=== PATIENT | female | born 1940 | race Caucasian/White ===

== ENCOUNTER 2016-03-28 09:34 | Inpatient (IN) | payer OTHER ==
[2016-03-12 10:17] VITALS: BMI 32.0
--- NOTE | 2016-03-12 10:49 | PAT Medication Instructions ---
Service Date Mar 12, 2016. Current Home Medication List Allopurinol (Zyloprim), 200 MG PO QAM Alprazolam (Xanax), 0.5 MG PO BID PRN for Anxiety Atenolol (Tenormin), 25 MG PO QAM Biotin (Biotin 5000), 1 TAB PO QAM Cholecalciferol (Vitamin D), 1 TAB PO QAM Cyclobenzaprine Hcl (Flexeril), 10 MG PO TID PRN for Muscle Spasms Glucosamine-Chondroitin (Glucosamine/Chondroitin), 2 CAPSULES PO QAM Hydrocodon/Acetaminophen 5MG/300MG (Vicodin (5MG/300MG)), 1 TAB PO Q6H PRN for Pain Lisinopril/Hctz (Zestoretic 10MG/12.5MG *), 1 TAB PO QAM Multivitamin (Multivitamin), 1 TAB PO QAM Oxybutynin Chloride (Ditropan), 5 MG PO QAM Vitamin B Complex (Vitamin B Complex), 1 TAB PO QAM [Vitamin B12 Inj], 1 DOSE INJ MONTHLY Medication Instructions For Your Scheduled Surgery - Continue as directed: [Vitamin B12 Inj], 1 DOSE INJ MONTHLY - Hold the following medications 2 weeks prior to surgery: Biotin (Biotin 5000), 1 TAB PO QAM Glucosamine-Chondroitin (Glucosamine/Chondroitin), 2 CAPSULES PO QAM - Hold the following medications the morning of surgery: Cholecalciferol (Vitamin D), 1 TAB PO QAM Lisinopril/Hctz (Zestoretic 10MG/12.5MG *), 1 TAB PO QAM Multivitamin (Multivitamin), 1 TAB PO QAM Cyclobenzaprine Hcl (Flexeril), 10 MG PO TID PRN for Muscle Spasms Vitamin B Complex (Vitamin B Complex), 1 TAB PO QAM - Take the following medications the morning of surgery with a sip of water OTHERWISE NOTHING TO EAT OR DRINK AFTER MIDNIGHT: Allopurinol (Zyloprim), 200 MG PO QAM Alprazolam (Xanax), 0.5 MG PO BID PRN for Anxiety Atenolol (Tenormin), 25 MG PO QAM Oxybutynin Chloride (Ditropan), 5 MG PO QAM Hydrocodon/Acetaminophen 5MG/300MG (Vicodin (5MG/300MG)), 1 TAB PO Q6H PRN for Pain (may take if needed up to 4 hours prior to surgery) - Take the following medications as scheduled the night before surgery: Alprazolam (Xanax), 0.5 MG PO BID PRN for Anxiety Cyclobenzaprine Hcl (Flexeril), 10 MG PO TID PRN for Muscle Spasms Hydrocodon/Acetaminophen 5MG/300MG (Vicodin (5MG/300MG)), 1 TAB PO Q6H PRN for Pain If you have any questions please call us at [phone] (Shirley Knapp PA-C ) or [phone] or [phone]
--- NOTE | 2016-03-12 11:51 | DIAGNOSTIC IMAGING REPORT ---
CHEST PREADMISSION(PA/LAT) CLINICAL HISTORY: Preoperative chest. Trauma. Right mid chest and back pain. COMPARISON STUDY: No previous studies for comparison. FINDINGS: The cardiac and mediastinal contours are normal. There is no evidence of focal pulmonary consolidation. There is no evidence of failure. No pleural effusions are visualized.[ There are right breast/chest wall calcifications. There is been apparent prior surgical resection of the distal right clavicle. IMPRESSION: No active disease in the chest. Electronically signed by: Jose Luis Curtis M.D. 03/12/2016 11:49 AM Dictated Date/Time: 03/12/2016 11:49 AM
[2016-03-12 11:59] LABS: BASO % 0.7 %; BASO ABS # 0.06 K/uL (0-0.2); COMPLETE YES; EOS % 1.2 %; HEMATOCRIT 38.7 % (37-47); IG% 0.5 %; LYMPH % 18.4 %; LYMPH ABS # 1.58 K/uL (1.2-3.4); MEAN CELL VOLUME 91.9 fL (80-100); MEAN CORPUSCULAR HEMOGLOBIN 30.9 pg (25-34); MEAN CORPUSCULAR HGB CONC 33.6 g/dl (32-36); MEAN PLATELET VOLUME 11.2 fL (7.4-10.4); MONO % 9.2 %; PLATELET COUNT 236 K/uL (130-400); RED BLOOD COUNT 4.21 M/uL (4.2-5.4); WHITE BLOOD COUNT 8.59 K/uL (4.8-10.8)
[2016-03-12 12:06] LABS: PARTIAL THROMBOPLASTIN RATIO 1.1; PROTHROMBIN TIME (PATIENT) 10.6 SECONDS (9.0-12.0)
[2016-03-12 12:08] LABS: URINE APPEARANCE CLEAR (CLEAR); URINE BILIRUBIN NEG (NEG); URINE COLOR DK YELLOW; URINE EPITHELIAL CELL AUTO >30 /lpf (0-5); URINE NITRITE NEG (NEG); URINE SPECIFIC GRAVITY 1.011 (1.000-1.030); UROBILINOGEN NEG (NEG)
[2016-03-12 12:10] LABS: MANUAL MICROSCOPIC REQUIRED? NO; REVIEW REQ? NO
[2016-03-12 12:29] LABS: BUN/CREATININE RATIO 21.3 (10-20); CALCIUM 9.6 mg/dl (8.5-10.1); CREATININE 1.2 mg/dl (0.60-1.20); POTASSIUM 4.2 mmol/L (3.5-5.1)
[2016-03-12 12:34] LABS: ESTIMATED AVERAGE GLUCOSE 131 mg/dl; HA1C FLAG Normal (Normal)
--- NOTE | 2016-03-27 13:54 | HISTORY & PHYSICAL EXAMINATION ---
DATE OF ADMISSION: 03/28/2016 CHIEF COMPLAINT: Chronic right shoulder pain. HISTORY OF PRESENT ILLNESS: This is a 76-year-old female patient of Dr. Moody, complaining of chronic right shoulder pain and weakness, longstanding, now progressively getting worse. The patient has failed conservative treatment and wishes to proceed with a right reverse total shoulder arthroplasty. The patient has been diagnosed with insufficient rotator cuff and osteoarthritis per clinical and radiographic exams. PAST MEDICAL HISTORY: Hypertension, anxiety, neck problems, upper back problems, sciatica, obesity, and dental crowns. SOCIAL HISTORY: Nonsmoker and nondrinker. PAST SURGICAL HISTORY: Gastric bypass surgery and arthroscopy knee and shoulder surgery. FAMILY HISTORY: Noncontributory. REVIEW OF SYSTEMS: The patient complains of chronic right shoulder pain and weakness. Otherwise, denies any shortness of breath, chest pain, nausea, vomiting or any other joint complaints. MEDICATIONS: Include lisinopril 10/12.5 mg daily, Xanax 0.5 mg 1 tablet up to 3 times a day daily p.r.n., allopurinol 100 mg 2 tablets daily, atenolol 25 mg daily, Ditropan 10 mg daily as needed, Flexeril 10 mg 3 times a day as needed, multivitamins daily, glucosamine daily, biotin daily, cyanocobalamin daily. ALLERGIES: ULTRAM, PERCOCET, AND DARVOCET. PHYSICAL EXAMINATION: GENERAL: Well-developed and well-nourished 76-year-old female in no acute distress. She is alert and oriented x3 and pleasant. HEENT: Normocephalic and atraumatic. Extraocular motions are intact. Pupils are equal and reactive to light. HEART: Regular rate and rhythm, no murmurs appreciated. LUNGS: Clear. ABDOMEN: Soft and nontender. Bowel sounds are present. EXTREMITIES: Right shoulder reveals active range of motion to 80 degrees, passively to 140. She has crepitation and pain with passive and active range of motion. She has 3+/5 strength globally. NEUROLOGIC: Neurovascularly, she is intact in her right upper extremity. 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 She also has hypertension, anxiety, neck problems, upper back problems, sciatica, and obesity. PLAN: The patient was advised of her diagnoses. Indications, risks, benefits, and postop course have all been reviewed. The patient wishes to proceed with a right reversed total shoulder arthroplasty. Necessary consent forms, preoperative testing and clearances will be obtained.
[~2016-03-28] VITALS: Ht 157.5 cm; Wt 79.7 kg
[~2016-03-28 09:34] MED LIST: ACETAMINOPHEN 500 MG TAB PO SCH; ALLO100T PO; ALPR-411 PO; ATEN-173 PO; BIOTCAP2 PO; CEFAZOLIN 1000MG/55 ML D5W 55 ML IV SCH; CHOL20009 PO; CYCL10TA6 PO; DEXAMETHASONE 4 MG TAB PO SCH; FAMOTIDINE 20 MG TAB PO SCH; GABAPENTIN 300 MG CAP PO SCH; GLCSC750600 PO; HYDR-3419 PO; LACTATED RINGER'S 1000ML IV SCH; METOCLOPRAMIDE HCL 10 MG TAB PO SCH; MULT-506 PO; OXYB5TAB74 PO; PATIENT'S ALLERGY INFO NEEDS ENTERED SCH; PRN10125 PO; ROPIVACAINE 0.5% 5 MG/ML 30 ML VIAL ONE; VITAMIN B12 INJ INJ; VITBC PO
[2016-03-28] MEDS ORDERED: PROPOFOL IV EMULSION 10 MG/ML 20 ML VIAL IV ONE (12:23)
[2016-03-28] MEDS ORDERED: MIDAZOLAM HCL 1 MG/ML 2ML VIAL ONE (12:23)
[2016-03-28] MEDS ORDERED: ONDANSETRON INJ 2 MG/ML 2 ML VIAL ONE (12:23)
[2016-03-28] MEDS ORDERED: DEXAMETHASONE SOD INJ 4 MG/ML VIAL ONE (12:23)
[2016-03-28] MEDS ORDERED: ROCURONIUM BROMIDE 10 MG/ML 5 ML VIAL ONE (12:23)
[2016-03-28] MEDS ORDERED: FENTANYL CITRATE INJ 50 MCG/1 ML 2 ML VIAL ONE (12:23)
--- NOTE | 2016-03-28 12:29 | History & Physical Bridge Note ---
H&P Re-Evaluation Bridge Note: I have examined the patient, reviewed the History & Physical and in the interval since the performance of the History & Physical I have noted the following changes of clinical significance: No changes noted
[2016-03-28] MEDS ORDERED: ATROPINE SULFATE 0.1 MG/ML 5ML SYR IV PRN (12:45)
[2016-03-28] MEDS ORDERED: EpHEDrine SULFATE INJ 50 MG/ML AMP IV PRN (12:45)
[2016-03-28] MEDS ORDERED: ONDANSETRON INJ 2 MG/ML 2 ML VIAL IV PRN ×2 (12:45→16:30)
[2016-03-28 12:57] VITALS: BP 127/76; PULSE 76; TEMP 36.7; O2SAT 98; Ht 157.5 cm; Wt 79.7 kg
[2016-03-28] MEDS ORDERED: SCOPOLAMINE 1.5 MG TDSY TD ONE (13:14)
[2016-03-28] MEDS ORDERED: NURSING VERBAL MED ORDER ONE (13:15)
[2016-03-28] MEDS ORDERED: PHENYLEPHRINE 100MCG/ML 5ML SYR ONE (14:28)
[2016-03-28] MEDS ORDERED: CEFAZOLIN SOD 1 GM VIAL ONE (14:28)
[2016-03-28] MEDS ORDERED: PHENYLEPHRINE HCL INJ 10 MG/ML VIAL ONE (15:46)
[2016-03-28] MEDS ORDERED: BACITRACIN 50000 UNIT VIAL IR ONE (15:49)
--- NOTE | 2016-03-28 16:09 | [facility] Operative Report ---
Operative Report Operative Date Mar 28, 2016. Pre-Operative Diagnosis Right Shoulder End stage Osteoarthritis with insufficient rotator cuff Post-Operative Diagnosis same chronic biceps rupture Procedure(s) Performed right reversed total shoulder replacement Surgeon Dr. Spencer Moody Manager Land Surgeon(s) Nabil Haywood PA-C Estimated Blood Loss 75ml Findings rotator cuff tendinopathy small areas complete full thickness tearing and grade 4 djd glenohumeral Specimens A. Right Humeral Head Drains 2 HV Anesthesia general regional Complication(s) None Disposition Recovery Room / PACU Indications advanced grade 4 djd glenohumeral I attest to the content of the Intraoperative Record and any orders documented therein. Any exceptions are noted below.
[2016-03-28] MEDS ORDERED: MAGNESIUM HYDROXIDE SUSP 30 ML UDC PO PRN (16:30)
[2016-03-28] MEDS ORDERED: ZOLPIDEM TARTRATE 5 MG TAB PO PRN (16:30)
[2016-03-28] MEDS ORDERED: NALOXONE HCL 0.4 MG/1 ML VIAL/CARP IV PRN (16:30)
[2016-03-28] MEDS ORDERED: BISACODYL 10 MG SUPP PR PRN (16:30)
[2016-03-28] MEDS ORDERED: ALPRAZOLAM 0.5 MG TAB PO PRN (16:30)
[2016-03-28] MEDS ORDERED: SOD PHOSPHATE/SOD BIPHOSPHATE ENEMA 132 ML BTL PR PRN (16:30)
[2016-03-28] MEDS ORDERED: ACETAMINOPHEN 325 MG TAB PO PRN (16:30)
[2016-03-28] MEDS: FENTANYL CITRATE INJ 50 MCG/1 ML 2 ML VIAL IV PRN ×4 (16:35→16:54)
--- NOTE | 2016-03-28 16:52 | DIAGNOSTIC IMAGING REPORT ---
RIGHT SHOULDER MIN 2 VIEWS ROUTINE CLINICAL HISTORY: Postoperative evaluation of the right shoulder. COMPARISON: None FINDINGS: Alignment of the right shoulder arthroplasty is anatomic. There is no fracture or unexpected radiopaque foreign body. Drains and skin lars are present. There is evidence for an old distal right clavicular resection. IMPRESSION: Expected findings following right shoulder arthroplasty. Electronically signed by: Omid Diallo M.D. 03/28/2016 4:50 PM Dictated Date/Time: 03/28/2016 4:49 PM
[2016-03-28] MEDS ORDERED: MoRPHine SULFATE 4 MG/ML 1 ML CARP\\VIAL IV PRN (17:15)
--- NOTE | 2016-03-28 18:20 | Anesthesiology Progress Note ---
Anesthesia Post Op Note Date & Time Mar 28, 2016 at 18:16 Vital Signs Pain Intensity: 0 Vital Signs Past 12 Hours Date Time Temp Pulse Resp B/P Pulse Ox O2 Delivery O2 Flow Rate FiO2 03/28/16 18:10 80 16 111/72 96 Nasal Cannula 4 03/28/16 17:55 36.2 83 16 131/79 97 Mask 10 03/28/16 17:45 81 16 113/69 93 T-piece 8 50 03/28/16 17:35 79 16 110/72 93 T-piece 8 50 03/28/16 17:25 83 16 120/73 94 T-piece 8 50 03/28/16 17:15 85 18 117/82 94 T-piece 8 50 03/28/16 17:05 86 18 111/71 92 T-piece 8 50 03/28/16 16:55 82 18 105/75 92 T-piece 8 50 03/28/16 16:45 95 18 109/71 92 T-piece 8 50 03/28/16 16:35 95 18 121/72 92 T-piece 8 50 03/28/16 16:32 36.0 92 14 126/76 92 T-piece 8 50 03/28/16 12:57 36.7 76 18 127/76 98 Room Air Notes Mental Status: alert / awake / arousable, participated in evaluation Pt Amnestic to Procedure: Yes Nausea / Vomiting: adequately controlled Pain: adequately controlled Airway Patency, RR, SpO2: stable & adequate, see Notes BP & HR: stable & adequate Hydration State: stable & adequate Anesthetic Complications: no major complications apparent The patient did well during surgery. Upon wake up she received full reversal after 3/4 twitches and improved to 4/4 twitches. She was had TVs in the 300s and was breathing 20 times per minute, but had a weak manager distribution center and was not able to lift her head. Her other vitals were stable. She was taken intubated to PACU and placed on a T piece and monitored with ETCO2. She gradually gained strength and was extubated without any issue. She remained stable and comfortable in the PACU and is okay to go to the floor.
[2016-03-28 18:50] VITALS: BP 116/76; PULSE 82; TEMP 36.4; O2SAT 95
[2016-03-28 19:25] VITALS: BP 124/81; PULSE 81; TEMP 34.6; O2SAT 97
[2016-03-28] MEDS: D5W AND 1/2NSS + 20MEQ KCL 1,000 ML IV SCH (19:48)
[2016-03-28] MEDS: CHECK SCOPOLAMINE PATCH PLACEMENT SCH (19:49)
[2016-03-28] MEDS ORDERED: GLUCAGON FOR INJ 1 MG VIAL SQ PRN (20:00)
[2016-03-28] MEDS ORDERED: DEXTROSE 50% 50 ML SYR IV PRN (20:00)
[2016-03-28] MEDS ORDERED: GLUCOSE 40% GEL 15 GM TUBE PO PRN (20:00)
[2016-03-28] MEDS ORDERED: GLUCOSE 10 TABS/TUBE PO PRN (20:00)
[2016-03-28 20:20] VITALS: BP 127/82; PULSE 83; TEMP 35.7; O2SAT 97
[2016-03-28 21:20] VITALS: BP 103/69; PULSE 79; TEMP 36.4; O2SAT 96
[2016-03-28] MEDS: INSULIN ASPART 100 UNITS/ML 3 ML PEN SC SCH (21:48)
[2016-03-28] MEDS: CEFAZOLIN IV 1,000 MG in DEXTROSE 5% 50ML 50 ML IV SCH (21:50)
--- NOTE | 2016-03-28 22:46 | CONSULTATION REPORT ---
DATE OF CONSULTATION: 03/28/2016 CONSULT REQUESTED BY: Dr. Moody for medical management following right shoulder arthroplasty. HISTORY OF PRESENT COMPLAINT: She is a 76-year-old female with significant past medical history of chronic kidney disease stage III, type 2 diabetes, chronic back pain, hypertension, gout and generalized anxiety disorder, apparently underwent right total shoulder replacement by Dr. Moody today. She has had preop evaluation and her apparent preop labs and EKG and chest x-ray and echocardiogram, those were unremarkable. Following surgery, she is little drowsy from the effect of medications, little bit pleasantly confused but she denies to have any symptoms whatsoever. Even she does not have any pain in the right shoulder. No chest pain, shortness of breath or palpitation. No abdominal pain, nausea, vomiting. No numbness or tingling in the extremities. No headache, no blurred vision. No fever, chills or rigors and no rash. PAST MEDICAL HISTORY: Significant for chronic kidney disease, type 2 diabetes, general osteoarthritis, chronic back pain, hypertension, generalized anxiety disorder, gout. PAST SURGICAL HISTORY: Significant for laparoscopic gastric bypass 2004, cholecystectomy, partial colectomy for diverticulitis, appendectomy, tonsillectomy as a child and umbilical hernia repair and also vaginal hysterectomy. FAMILY HISTORY: Brother has heart disease. Father had heart disease. Mother had heart disease and hypertension. Mother had CVA as well and father had CVA. SOCIAL HISTORY: She is . She has 2 children. She quit smoking in 1995. She does not use any alcohol. She has been reasonably ambulant. MEDICATIONS: She has been on allopurinol 200 mg morning, atenolol 25 mg in the morning, Prinzide 10/12.5 one tablet daily, Ditropan 5 mg daily, vitamin B complex 1 tablet daily, vitamin D 2000 units daily, Protonix 40 mg daily, multivitamin 1 tablet daily, antibiotic as prescribed by ortho, morphine for pain and she is also getting symptomatic medications for her problem. PHYSICAL EXAMINATION: GENERAL: On examination on the medical floor, she was not having any acute distress. VITAL SIGNS: Temperature 36.24, pulse was 82, blood pressure 116/76, saturation 95% on 4 liters nasal cannula. HEENT: Unremarkable. NECK: Supple. No JVD, no bruit. CHEST: Clear to auscultation bilaterally. HEART: S1, S2 regular, no murmur. ABDOMEN: Soft, benign, nontender, no organomegaly. Bowel sounds present. EXTREMITIES: Negative for any edema. MUSCULOSKELETAL: Examination did not show any acute arthritis involving any joint and she is status post right shoulder arthroplasty. CENTRAL NERVOUS SYSTEM: Alert, awake, oriented x3. LABORATORY DATA: Noted from 12 of March. CBC and PRP. PT/INR, UA examination. Chest x-ray and EKG unremarkable. IMPRESSION AND PLAN: 1. Status post right shoulder arthroplasty. Management will be as per ortho. 2. Diabetes type 2. We will put her on sliding scale while in the hospital. She has had a recent hemoglobin A1c done, we will not get one while in the hospital. 3. Hypertension. Blood pressure seems to be under control. Continue with current medications. 4. Gout. Continue with current medications. 5. Gastrointestinal prophylaxis with Protonix. 6. Deep venous thrombosis prophylaxis as per ortho. 7. Chronic kidney disease, seems to be stable. We would follow up with PRP and also follow hemoglobin status post surgery. Thank you for this consultation. I will be following this patient with you during this hospitalization. LAVELLE
[2016-03-29] VITALS (7 sets, daily range): BP systolic 94–125; BP diastolic 61–77; PULSE 62–77; TEMP 36.4–36.8; O2SAT 90–96
[2016-03-29] MEDS: CHECK SCOPOLAMINE PATCH PLACEMENT SCH ×4 (00:06→23:55)
[2016-03-29] MEDS: D5W AND 1/2NSS + 20MEQ KCL 1,000 ML IV SCH (05:31)
[2016-03-29] MEDS: CEFAZOLIN IV 1,000 MG in DEXTROSE 5% 50ML 50 ML IV SCH (05:31)
[2016-03-29 05:59] LABS: HEMATOCRIT 34.9 % (37-47); MEAN CELL VOLUME 91.8 fL (80-100); MEAN CORPUSCULAR HEMOGLOBIN 31.1 pg (25-34); MEAN CORPUSCULAR HGB CONC 33.8 g/dl (32-36); MEAN PLATELET VOLUME 11.1 fL (7.4-10.4); PLATELET COUNT 194 K/uL (130-400); WHITE BLOOD COUNT 11.93 K/uL (4.8-10.8)
[2016-03-29 06:30] LABS: BUN/CREATININE RATIO 23.5 (10-20); CALCIUM 8.9 mg/dl (8.5-10.1); CREATININE 1.3 mg/dl (0.60-1.20); MAGNESIUM 1.7 mg/dl (1.8-2.4); POTASSIUM 5.1 mmol/L (3.5-5.1)
--- NOTE | 2016-03-29 07:45 | Orthopedic Progress Note ---
Orthopedic Progress Note Date of Service Mar 29, 2016. Subjective Post OP Day: 1 Reports: feeling well, Denies: SOB, chest pain, complaints, nausea / vomiting Objective N/V intact, capillary refill less than 2 sec., dressing C/D/I, A&O x3 sling in tact, fingers mobile Date Time Temp Pulse Resp B/P Pulse Ox O2 Delivery O2 Flow Rate FiO2 03/29/16 07:09 36.5 77 17 101/63 91 Room Air 03/29/16 03:45 36.4 75 14 114/75 90 Room Air 03/29/16 00:10 36.4 70 16 106/70 95 Room Air 03/29/16 00:00 Room Air 03/28/16 21:20 36.4 79 16 103/69 96 Nasal Cannula 4.0 03/28/16 20:20 35.7 83 16 127/82 97 Nasal Cannula 4.0 03/28/16 19:25 34.6 81 16 124/81 97 Nasal Cannula 4.0 03/28/16 18:50 36.4 82 18 116/76 95 Nasal Cannula 4.0 03/28/16 18:20 Nasal Cannula 4.0 03/28/16 18:10 80 16 111/72 96 Nasal Cannula 4 03/28/16 17:55 36.2 83 16 131/79 97 Mask 10 03/28/16 17:45 81 16 113/69 93 T-piece 8 50 03/28/16 17:35 79 16 110/72 93 T-piece 8 50 03/28/16 17:25 83 16 120/73 94 T-piece 8 50 03/28/16 17:15 85 18 117/82 94 T-piece 8 50 03/28/16 17:05 86 18 111/71 92 T-piece 8 50 03/28/16 16:55 82 18 105/75 92 T-piece 8 50 03/28/16 16:45 95 18 109/71 92 T-piece 8 50 03/28/16 16:35 95 18 121/72 92 T-piece 8 50 03/28/16 16:32 36.0 92 14 126/76 92 T-piece 8 50 03/28/16 12:57 36.7 76 18 127/76 98 Room Air Laboratory Results 24 Hours: Test 03/29/16 05:16 Hematocrit 34.9 % Hemoglobin 11.8 g/dL Assessment & Plan Assessment: POD #1, Rt reversed TSA Plan: Limited PT / OT as ordered D/C plans- Home, no formal PT for 6 WKS As per medicine. Inhouse Planning Pain Management: [place], Morphine DVT Prophylaxis: SCDs Discharge Planning Discharge Planning: home Pain Management: [place] DVT Prophylaxis: TEDs
--- NOTE | 2016-03-29 08:01 | OPERATIVE REPORT ---
DATE OF OPERATION: 03/28/2016 INDICATION FOR PROCEDURE: The patient is a 76-year-old female. She has a history of progressive osteoarthritis of her right shoulder and also rotator cuff tendinopathy. She has 0had previous decompression, distal clavicle surgery and rotator cuff surgery. Her rotator cuff did well with repair, but she has had progressive osteoarthritis and some proximal migration of the humerus, consistent with cuff tendinopathy and/or failure of repair. Because of ongoing pain and end-stage degenerative arthritis, she presents for a right reverse total shoulder replacement. She also has some obesity and she has had gastric bypass surgery and has some residual obesity. PREOPERATIVE DIAGNOSIS: End-stage glenohumeral degenerative arthritis with rotator cuff tendinopathy, status post previous arthroscopic rotator cuff surgery. POSTOPERATIVE DIAGNOSIS: Same with the majority of the rotator cuff being intact with some small full thickness tears, vertical and longitudinal, with marked tendinopathy, both supraspinatus and subscapularis, with grade 4 degenerative arthritis of glenohumeral joint and chronic ruptured biceps tendon. PROCEDURE: Right reverse total shoulder arthroplasty. SURGEON: Dr. Moody. STATIONARY ENGINEER SUPERVISOR: Nabil Haywood PA-C ANESTHESIA: Regional block, general. OPERATIVE PROCEDURE: The patient was taken to the operating room and anesthetized under regional block and general anesthetic. She was positioned on an operating table in a 30-degree beach chair position with a towel roll under the medial border of her right scapula. She was translated to the right side of the bed, so her shoulder could be manipulated off the bed as necessary. Her head was placed on a foam headrest. She had protective eyewear placed. She had TEDs and SCDs placed and also a Pearl catheter. Right shoulder exam demonstrated that she had 150 degrees of passive forward elevation, 90 degrees of abduction. She had external rotation to 80 degrees. Her shoulder had clearly significant glenohumeral crepitation. She also had obesity of the arm. Her shoulder was then sterilely prepped and draped with ChloraPrep. An anterior deltopectoral approach was performed. Skin was incised sharply. Subcutaneous flaps were elevated. Dissection was taken down to the deltopectoral interval. This was developed and the small cephalic vein was dissected laterally with the deltoid and retracted with the deltoid laterally. The pectoralis was released for 1 cm to get inferior exposure. The circumflex vessels were tied off medially and cauterized laterally over the bicipital groove. There was no biceps tendon in the groove, consistent with chronic rupture. The rotator cuff had bursitis. We resected all of the significantly inflamed bursa and the supraspinatus had some vertical splits and tendinopathy of the supraspinatus tendon in it and there was some gap between the supraspinatus and infraspinatus; posterior infraspinatus and teres minor were intact and the subscapularis was intact, but was significantly thin and tendinopathic in appearance. I dissected the fibers of the subscapularis at the level of the circumflex vessels down to the capsule, used a Kitner elevator to release the inferior fibers off the capsule and identified the axillary nerve inferiorly and protected it with a blunt Hohmann retractor. Then, the incision was taken up through the bicipital groove and then down the rotator interval and the subscapularis was taken down off the lesser tuberosity, subperiosteally, until we reached the articular surface and then a Vicryl traction suture was placed into the subscapularis tendon tissue. Some of the tendinopathic supraspinatus was resected. We maintained the infraspinatus and teres minor to be intact posteriorly. I then placed a Fukuda retractor into the joint and then went ahead and inspected the glenohumeral joint. There was [id number] there with the humeral head being complete exposed bones plus the glenoid was completely down to exposed bone. The labrum had some remnants of labrum tissue, circumferentially, which were resected. There was no biceps tendon noted in the joint at all. The wear was concentric and central, but slightly superior wear. At this point, the releases were performed, releasing the anterior inferior, posterior inferior capsules under direct visualization with the axillary nerve protected inferiorly. We also freed up some of capsular release with a Finney elevator. After the releases were completed, then, attention was taken to the humeral head resection. The humerus was exposed with extension and external rotation. Retractors were placed. The guide for the 20A reversed II Aequalis system was used with that for the glenoid and the long stem Flex shoulder system used for the humerus with Aequalis Ascend Flex humeral head. The cutting guide was adjusted to make our humeral head cut at appropriate angle at 20 degrees of retroversion. The articular surface was resected in that angle. Then, we placed retractors to expose the glenoid. The glenoid was fully exposed and the patient had a petite glenoid, so we used a 25 mm baseplate. A drill hole was made centrally, we placed a 10-degree inferior tilt on the drill to place the component in some inferior tilt. The reamer for the 25 mm base plate was then used. Then, the central drill hole was widened and the hydroxyapatite coated Aequalis reversed II glenoid baseplate, 25 mm in diameter, was impacted in position with a good pressfit and we used the distal anterior and posterior compression screws and superior and inferior locking screws 18 and 26 mm and 26 and 29 mm respectively. There was excellent fixation. I used the fan reamer for the 36 glenosphere. Then we placed the glenoid sphere in place and screwed it in tight. Then attention was taken to the humeral preparation. We sized the humerus for a 3 stem component. We used broaches up to a 3 and then did a trial reduction with a high offset base plate. We used the +6 insert, which gave a stable shoulder. The shoulder was completely stable in abduction, external rotation with an anterior load shift and forward elevation, adduction and extension and external rotation. The trial was then removed with the use of a bone hook. Then, the trials were removed. Drill holes were made through the bicipital groove and transosseous osseous #5 FiberWire sutures x3 were placed. Then, the final stem was assembled on a back table, while taking note of the appropriate rotation of the reverse tray. So, the +0 high offset reversed tray was assembled to the 3B the long humeral Ascend Flex stem. Then, we placed it on the +6 reversed insert and assembled that whole component and impacted it into the humerus after copious irrigation. There was a tight pressfit. Then this was reduced to the glenoid sphere and then we verified stability. After copious irrigation, the subscapularis was repaired with #5 FiberWire sutures previously placed transosseously with the David-Gil suture technique, then lateral soft tissue fixation with interrupted #2 Fiberwire sutures. The pectoralis was closed with #2 FiberWire [id number] suture. The shoulder was stable through 150 degrees of forward elevation, 90 degrees of abduction and about 35-40 degrees of external rotation with subscapularis at that point. The wound was irrigated again copiously with antibiotic solution and bacitracin. Two drains were brought out laterally and placed deep to the deltopectoral interval. The deltopectoral was then closed with [id number] #1 Vicryl sutures. The subcutaneous tissues were closed with 2-0 Vicryl, skin was closed with lars. Sterile dressings were applied and the patient tolerated the procedure well. CRISTIAN Carrero, was my list of first job ideas and he functioned as list of first job ideas in the entire procedure. He assisted in patient positioning, prepping, draping, arm positioning, instrument management, suture management, soft tissue retraction during the procedure and he performed the subcutaneous skin closure and will participate in some of the postoperative care of the patient. I attest to the content of the Intraoperative Record and any orders documented therein. Any exceptions are noted below. LAVELLE
[2016-03-29] MEDS: MULTIVITAMIN TAB PO SCH (08:29)
[2016-03-29] MEDS: CHOLECALCIFEROL 1000 INTER.UNIT TAB PO SCH (08:30)
[2016-03-29] MEDS: PANTOprazole SOD 40 MG TAB PO SCH (08:30)
[2016-03-29] MEDS: VITAMIN B COMPLEX TAB PO SCH (08:30)
[2016-03-29] MEDS: LISINOPRIL/HCTZ 10/12.5MG TAB PO SCH (08:30)
[2016-03-29] MEDS: ALLOPURINOL 100 MG TAB PO SCH (08:30)
[2016-03-29] MEDS: OXYBUTYNIN CHLORIDE 5 MG TAB PO SCH (08:31)
[2016-03-29] MEDS: INSULIN ASPART 100 UNITS/ML 3 ML PEN SC SCH ×4 (08:36→20:58)
[2016-03-29] MEDS ORDERED: BIOTIN PO SCH (09:00)
--- NOTE | 2016-03-29 10:32 | Anesthesiology Progress Note ---
Anesthesia Post Op Note Date & Time Mar 29, 2016 at 10:31 Vital Signs Pain Intensity: 0.0 Vital Signs Past 12 Hours Date Time Temp Pulse Resp B/P Pulse Ox O2 Delivery O2 Flow Rate FiO2 03/29/16 07:25 Room Air 03/29/16 07:09 36.5 77 17 101/63 91 Room Air 03/29/16 03:45 36.4 75 14 114/75 90 Room Air 03/29/16 00:10 36.4 70 16 106/70 95 Room Air 03/29/16 00:00 Room Air Notes Mental Status: alert / awake / arousable, participated in evaluation Pt Amnestic to Procedure: Yes Nausea / Vomiting: adequately controlled Pain: adequately controlled Airway Patency, RR, SpO2: stable & adequate BP & HR: stable & adequate Hydration State: stable & adequate Anesthetic Complications: no major complications apparent
[2016-03-29] MEDS ORDERED: NURSING VERBAL MED ORDER ONE ×2 (11:15→14:30)
[2016-03-29] MEDS: HYDROCODONE/ACETAMOPHEN 5/325MG TAB PO PRN ×2 (13:34→22:36)
[2016-03-29] MEDS: SODIUM CHLORIDE 0.9% 1000ML 1,000 ML IV SCH ×2 (14:39→22:32)
--- NOTE | 2016-03-29 17:16 | Progress Note ---
Internal Med Progress Note Date of Service: Mar 29, 2016. Provider Documentation: SUBJECTIVE: The patient was seen and examined Denies any complaints No more confusion OBJECTIVE: Vital Signs-as noted below Exam: General-no distress at rest Eyes-normal ENT-normal Neck-supple Lungs-clear to ausucltate bilaterally Heart-Regular,no murmur Abdomen-Benign,no masses,bowel sound present Extremities-Trace edema bilaterally Neuro-AAOx3 Lab data as noted below. ASSESSMENT & PLAN: Status post right shoulder arthroplasty. Management will be as per ortho. Hb stable Chronic kidney disease, seems to be stable. Creatinine is increased a little,likely due to dehydration IVF and recheck in AM Diabetes type 2. Recent HbA1c is decent Follow thw diet Hypertension. Blood pressure seems to be under control. Continue with current medications. Gout. Continue with current medications. Gastrointestinal prophylaxis with Protonix. Deep venous thrombosis prophylaxis as per ortho. Vital Signs: Date Time Temp Pulse Resp B/P Pulse Ox O2 Delivery O2 Flow Rate FiO2 03/29/16 15:32 36.4 62 16 114/74 96 Room Air 03/29/16 11:44 36.6 67 18 94/61 94 Room Air 03/29/16 07:25 Room Air 03/29/16 07:09 36.5 77 17 101/63 91 Room Air 03/29/16 03:45 36.4 75 14 114/75 90 Room Air 03/29/16 00:10 36.4 70 16 106/70 95 Room Air 03/29/16 00:00 Room Air 03/28/16 21:20 36.4 79 16 103/69 96 Nasal Cannula 4.0 03/28/16 20:20 35.7 83 16 127/82 97 Nasal Cannula 4.0 03/28/16 19:25 34.6 81 16 124/81 97 Nasal Cannula 4.0 03/28/16 18:50 36.4 82 18 116/76 95 Nasal Cannula 4.0 03/28/16 18:20 Nasal Cannula 4.0 03/28/16 18:10 80 16 111/72 96 Nasal Cannula 4 03/28/16 17:55 36.2 83 16 131/79 97 Mask 10 03/28/16 17:45 81 16 113/69 93 T-piece 8 50 03/28/16 17:35 79 16 110/72 93 T-piece 8 50 03/28/16 17:25 83 16 120/73 94 T-piece 8 50 03/28/16 17:15 85 18 117/82 94 T-piece 8 50 Lab Results: Results Past 24 Hours Test 03/28/16 21:43 03/29/16 05:16 03/29/16 08:06 03/29/16 11:10 Range/Units Bedside Glucose 189 209 170 70-90 mg/dl White Blood Count 11.93 4.8-10.8 K/uL Red Blood Count 3.80 4.2-5.4 M/uL Hemoglobin 11.8 12.0-16.0 g/dL Hematocrit 34.9 37-47 % Mean Corpuscular Volume 91.8 80-100 fL Mean Corpuscular Hemoglobin 31.1 25-34 pg Mean Corpuscular Hemoglobin Concent 33.8 32-36 g/dl RDW Standard Deviation 47.8 36.4-46.3 fL RDW Coefficient of Variation 14.3 11.5-14.5 % Platelet Count 194 130-400 K/uL Mean Platelet Volume 11.1 7.4-10.4 fL Sodium Level 137 136-145 mmol/L Potassium Level 5.1 3.5-5.1 mmol/L Chloride Level 105 98-107 mmol/L Carbon Dioxide Level 23 21-32 mmol/L Anion Gap 9.0 3-11 mmol/L Blood Urea Nitrogen 30 7-18 mg/dl Creatinine 1.30 0.60-1.20 mg/dl Est Creatinine Clear Calc Drug Dose 35.4 ml/min Estimated GFR () 45.8 Estimated GFR (Non- 39.5 BUN/Creatinine Ratio 23.5 10-20 Random Glucose 224 70-99 mg/dl Calcium Level 8.9 8.5-10.1 mg/dl Phosphorus Level 3.0 2.5-4.9 mg/dl Magnesium Level 1.7 1.8-2.4 mg/dl
[2016-03-29] MEDS: CYCLOBENZAPRINE HCL 10 MG TAB PO PRN (19:40)
[2016-03-29] MEDS: MoRPHine SULFATE 2 MG/ML CARP IV PRN (23:58)
[2016-03-30] MEDS: HYDROCODONE/ACETAMOPHEN 5/325MG TAB PO PRN ×4 (04:08→23:39)
[2016-03-30] MEDS: CYCLOBENZAPRINE HCL 10 MG TAB PO PRN (05:30)
[2016-03-30 05:37] LABS: HEMATOCRIT 29.8 % (37-47); MEAN CELL VOLUME 89.8 fL (80-100); MEAN CORPUSCULAR HGB CONC 34.6 g/dl (32-36); MEAN PLATELET VOLUME 10.6 fL (7.4-10.4); PLATELET COUNT 197 K/uL (130-400); RED BLOOD COUNT 3.32 M/uL (4.2-5.4); WHITE BLOOD COUNT 13.19 K/uL (4.8-10.8)
[2016-03-30] MEDS: SODIUM CHLORIDE 0.9% 1000ML 1,000 ML IV SCH (05:41)
[2016-03-30 06:32] LABS: BUN/CREATININE RATIO 22.6 (10-20); CALCIUM 8.1 mg/dl (8.5-10.1); CREATININE 1.3 mg/dl (0.60-1.20); POTASSIUM 4.3 mmol/L (3.5-5.1)
[2016-03-30] MEDS: MoRPHine SULFATE 2 MG/ML CARP IV PRN (06:51)
[2016-03-30] MEDS: CHECK SCOPOLAMINE PATCH PLACEMENT SCH ×2 (08:15→15:59)
--- NOTE | 2016-03-30 08:17 | Orthopedic Progress Note ---
Orthopedic Progress Note Date of Service Mar 30, 2016. Subjective Post OP Day: 1 Denies: SOB, calf pain, chest pain, light headedness, nausea / vomiting Additional Notes: Main issue is pain, she gets severely sick on oxycodone, can tolerate norco. Has been getting IV morphine regularly. Objective N/V intact, incision C/D/I, A&O x3 Sling in tact, fingers mobile. Date Time Temp Pulse Resp B/P Pulse Ox O2 Delivery O2 Flow Rate FiO2 03/30/16 00:00 Room Air 03/29/16 23:51 36.8 77 14 125/77 91 Room Air 03/29/16 19:32 36.8 70 16 109/68 93 Room Air 03/29/16 15:32 36.4 62 16 114/74 96 Room Air 03/29/16 15:30 Room Air 03/29/16 11:44 36.6 67 18 94/61 94 Room Air Laboratory Results 24 Hours: Test 03/30/16 05:20 Hematocrit 29.8 % Hemoglobin 10.3 g/dL Assessment & Plan Assessment: POD #2, Rt reversed TSA Plan: Limited PT / OT as ordered D/C plans- Home, no formal PT for 6 WKS As per medicine. Is still relying IV morphine, offered patient stronger orals meds like dilaudid but she refused as she is afraid she will get sick, she wants to just stay with norco Advised she will have pain and to wean off IV morphine today and goal is to go home tomorrow. Inhouse Planning Pain Management: Solomon, [place] DVT Prophylaxis: SCDs Discharge Planning Discharge Planning: home Pain Management: [place] DVT Prophylaxis: Michael
--- NOTE | 2016-03-30 08:18 | Discharge Instructions ---
Discharge Instructions Admission Reason for Admission: Right Shoulder Osteoarthritis Discharge Discharge Diagnosis / Problem: Rt Reversed TSA Discharge Goals Goal(s): Improve function Activity Recommendations Activity Limitations: as noted below . Instructions / Follow-Up Instructions / Follow-Up ACTIVITY RECOMMENDATIONS: SELF CARE INSTRUCTIONS AFTER TOTAL SHOULDER ARTHROPLASTY REVERSE A. You may do daily exercises as taught in physical therapy while in hospital. No lifting with the operative arm. B. You are to wear your sling/immobilizer at all times EXCEPT when performing your daily exercises and for hygiene purposes. C. You may perform dry, daily dressing changes. Please keep your incision covered. You may shower 48 hours after surgery. Do not apply soap or any ointment/ lotions directly over incision. Do not soak incision in bath tub/swimming pool. D. You may use ice as needed to operative shoulder. SPECIAL CARE INSTRUCTIONS: VERY IMPORTANT TO READ AND REVIEW A. There are a few signs you need to watch for after you are home. Call [facility] at [phone] if you experience any of the followin. Increased severe shoulder pain. Some pain is expected especially when you exercise. 2. Increased swelling in you shoulder or arm; pain or swelling in either upper extremity. 3. Any fluid drainage from the incision. 4. Shortness of breath or chest pain. B. Please call [facility] at [phone] if you have any questions or concerns about your operation or recovery. C. Call your physician if: 1. Temperature is greater than 101 degrees (F). 2. Pain is not relieved by prescribed pain medications. 3. Increase drainage or redness from incision. 4. Unanswered questions or concerns. FOLLOW UP VISIT: Please call [facility] at [phone] to schedule a follow up appointment with Dr. Moody or his PA in 12-14 days from your surgery date. Current Hospital Diet Patient's current hospital diet: Regular Diet, Diabetes Type 2 Diet Discharge Diet Recommended Diet: Renal Diet Procedures Procedures Performed: Right Reverse Total Shoulder Arthroplasty Pending Studies Studies pending at discharge: no Laboratory Results Hemoglobin A1c Test 03/12/16 10:55 Range/Units Estimated Average Glucose 131 mg/dl Hemoglobin A1c 6.2 H 4.5-5.6 % Medical Emergencies . Who to Call and When: Medical Emergencies: If at any time you feel your situation is an emergency, please call [phone] immediately. . Non-Emergent Contact Non-Emergency issues call your: Primary Care Provider . "Provider Documentation" section prepared by Nabil Haywood. VTE Core Measure Inpt VTE Proph given/why not?: Celine Chiu, SCD's
[2016-03-30 08:27] VITALS: BP 112/79; PULSE 73; TEMP 36.6; O2SAT 91
[2016-03-30] MEDS: ALLOPURINOL 100 MG TAB PO SCH (08:42)
[2016-03-30] MEDS: MULTIVITAMIN TAB PO SCH (08:42)
[2016-03-30] MEDS: VITAMIN B COMPLEX TAB PO SCH (08:42)
[2016-03-30] MEDS: OXYBUTYNIN CHLORIDE 5 MG TAB PO SCH (08:42)
[2016-03-30] MEDS: LISINOPRIL/HCTZ 10/12.5MG TAB PO SCH (08:42)
[2016-03-30] MEDS: PANTOprazole SOD 40 MG TAB PO SCH (08:43)
[2016-03-30] MEDS: CHOLECALCIFEROL 1000 INTER.UNIT TAB PO SCH (08:43)
[2016-03-30] MEDS: INSULIN ASPART 100 UNITS/ML 3 ML PEN SC SCH ×4 (08:48→23:36)
[2016-03-30 15:48] VITALS: BP 101/69; PULSE 73; TEMP 36.7; O2SAT 95
[2016-03-30] MEDS ORDERED: COUGH DROP (SUGAR FREE) LOZ 24 LOZ/1 BOX PO PRN (17:15)
[2016-03-30] MEDS ORDERED: NURSING VERBAL MED ORDER ONE (17:15)
--- NOTE | 2016-03-30 19:21 | Progress Note ---
Internal Med Progress Note Date of Service: Mar 30, 2016. Provider Documentation: SUBJECTIVE: sitting on the chair comfortably says has pain at surgery site no chest pain or sob afebrile OBJECTIVE: Vital Signs-as noted below Exam: General-alert and oriented ENT-normal hearing Neck-no neck masses Lungs-cta b/l no wheezing or crackles Heart-s1 and s2 heard regular rate and rhythm no murmurs Abdomen-soft bowel sounds present non tender no distension Extremities-no erythema right shoulder in sling Neuro-alert and awake moves extremities Lab data as noted below. ASSESSMENT & PLAN: Status post right shoulder arthroplasty. Management will be as per ortho. Hb stable Chronic kidney disease, seems to be stable. cr 1.3 will f/u labs Diabetes type 2. Recent HbA1c is decent on iss will monitor Hypertension. stable on home meds Gout. stable Gastrointestinal prophylaxis with Protonix. Deep venous thrombosis prophylaxis as per ortho. DISPOSITION as per ortho Vital Signs: Date Time Temp Pulse Resp B/P Pulse Ox O2 Delivery O2 Flow Rate FiO2 03/30/16 15:48 36.7 73 18 101/69 95 Room Air 03/30/16 08:27 36.6 73 18 112/79 91 Room Air 03/30/16 07:38 Room Air 03/30/16 00:00 Room Air 03/29/16 23:51 36.8 77 14 125/77 91 Room Air 03/29/16 19:32 36.8 70 16 109/68 93 Room Air Lab Results: Results Past 24 Hours Test 03/29/16 20:45 03/30/16 05:20 03/30/16 08:19 03/30/16 11:55 Range/Units Bedside Glucose 126 109 122 70-90 mg/dl White Blood Count 13.19 4.8-10.8 K/uL Red Blood Count 3.32 4.2-5.4 M/uL Hemoglobin 10.3 12.0-16.0 g/dL Hematocrit 29.8 37-47 % Mean Corpuscular Volume 89.8 80-100 fL Mean Corpuscular Hemoglobin 31.0 25-34 pg Mean Corpuscular Hemoglobin Concent 34.6 32-36 g/dl RDW Standard Deviation 46.5 36.4-46.3 fL RDW Coefficient of Variation 14.2 11.5-14.5 % Platelet Count 197 130-400 K/uL Mean Platelet Volume 10.6 7.4-10.4 fL Sodium Level 143 136-145 mmol/L Potassium Level 4.3 3.5-5.1 mmol/L Chloride Level 110 98-107 mmol/L Carbon Dioxide Level 24 21-32 mmol/L Anion Gap 9.0 3-11 mmol/L Blood Urea Nitrogen 29 7-18 mg/dl Creatinine 1.30 0.60-1.20 mg/dl Est Creatinine Clear Calc Drug Dose 35.4 ml/min Estimated GFR () 45.8 Estimated GFR (Non- 39.5 BUN/Creatinine Ratio 22.6 10-20 Random Glucose 109 70-99 mg/dl Calcium Level 8.1 8.5-10.1 mg/dl
[2016-03-30 22:52] VITALS: BP 127/77; PULSE 82; TEMP 36.9; O2SAT 92
[2016-03-31] MEDS: CHECK SCOPOLAMINE PATCH PLACEMENT SCH (00:10)
[2016-03-31 07:00] LABS: BASO % 0.2 %; BASO ABS # 0.02 K/uL (0-0.2); COMPLETE YES; EOS % 1.1 %; HEMATOCRIT 34.2 % (37-47); IG% 0.3 %; LYMPH % 22.1 %; LYMPH ABS # 2.27 K/uL (1.2-3.4); MEAN CORPUSCULAR HEMOGLOBIN 30.1 pg (25-34); MEAN PLATELET VOLUME 11.3 fL (7.4-10.4); MONO % 16.4 %; NEUT % 59.9 %; PLATELET COUNT 195 K/uL (130-400); RED BLOOD COUNT 3.76 M/uL (4.2-5.4); WHITE BLOOD COUNT 10.25 K/uL (4.8-10.8)
[2016-03-31 07:36] LABS: BUN/CREATININE RATIO 25.5 (10-20); CALCIUM 8.8 mg/dl (8.5-10.1); MAGNESIUM 1.9 mg/dl (1.8-2.4); POTASSIUM 4.2 mmol/L (3.5-5.1)
[2016-03-31 08:09] VITALS: BP 117/75; PULSE 82; TEMP 36.7; O2SAT 92
[2016-03-31] MEDS: LISINOPRIL/HCTZ 10/12.5MG TAB PO SCH (09:06)
[2016-03-31] MEDS: ALLOPURINOL 100 MG TAB PO SCH (09:06)
[2016-03-31] MEDS: VITAMIN B COMPLEX TAB PO SCH (09:06)
[2016-03-31] MEDS: MULTIVITAMIN TAB PO SCH (09:07)
[2016-03-31] MEDS: OXYBUTYNIN CHLORIDE 5 MG TAB PO SCH (09:07)
[2016-03-31] MEDS: PANTOprazole SOD 40 MG TAB PO SCH (09:07)
[2016-03-31] MEDS: CHOLECALCIFEROL 1000 INTER.UNIT TAB PO SCH (09:07)
[2016-03-31] MEDS: INSULIN ASPART 100 UNITS/ML 3 ML PEN SC SCH ×2 (09:10→12:44)
--- NOTE | 2016-03-31 09:38 | Orthopedic Progress Note ---
Orthopedic Progress Note Date of Service Mar 31, 2016. Subjective Post OP Day: 3 Reports: feeling well, pain controlled w PO medications, Denies: SOB, calf pain , chest pain, light headedness, nausea / vomiting Objective calves soft nontender, N/V intact, capillary refill less than 2 sec., dressing C /D/I, A&O x3, toes mobile Date Time Temp Pulse Resp B/P Pulse Ox O2 Delivery O2 Flow Rate FiO2 03/31/16 08:09 36.7 82 16 117/75 92 Room Air 03/31/16 08:08 Room Air 03/30/16 23:55 Room Air 03/30/16 22:52 36.9 82 18 127/77 92 Room Air 03/30/16 15:48 36.7 73 18 101/69 95 Room Air 03/30/16 15:30 Room Air Laboratory Results 24 Hours: Test 03/31/16 06:16 White Blood Count 10.25 K/uL Red Blood Count 3.76 M/uL Hemoglobin 11.3 g/dL Hematocrit 34.2 % Mean Corpuscular Volume 91.0 fL Mean Corpuscular Hemoglobin 30.1 pg Mean Corpuscular Hemoglobin Concent 33.0 g/dl Platelet Count 195 K/uL Mean Platelet Volume 11.3 fL Neutrophils (%) (Auto) 59.9 % Lymphocytes (%) (Auto) 22.1 % Monocytes (%) (Auto) 16.4 % Eosinophils (%) (Auto) 1.1 % Basophils (%) (Auto) 0.2 % Neutrophils # (Auto) 6.14 K/uL Lymphocytes # (Auto) 2.27 K/uL Monocytes # (Auto) 1.68 K/uL Eosinophils # (Auto) 0.11 K/uL Basophils # (Auto) 0.02 K/uL Assessment & Plan Assessment: POD #2, Rt reversed TSA Plan: Limited PT / OT as ordered D/C plans- Home, no formal PT for 6 WKS As per medicine. Inhouse Planning Pain Management: [place] DVT Prophylaxis: TEDs, SCDs, other Discharge Planning Discharge Planning: home Pain Management: [place] DVT Prophylaxis: TEDs
[2016-03-31] MEDS ORDERED: HYDR-5688 PO (09:40)
[2016-03-31] MEDS ORDERED: ONDA8TAB6 PO (09:40)
[2016-03-31] MEDS: HYDROCODONE/ACETAMOPHEN 5/325MG TAB PO PRN (12:49)
[2016-03-31 13:00] VITALS: BP 117/75; PULSE 82; TEMP 36.7; O2SAT 92
--- NOTE | 2016-04-15 14:46 | DISCHARGE SUMMARY ---
HISTORY OF PRESENT ILLNESS: This is a 76-year-old female patient of Dr. Moody's complaining of chronic right shoulder pain and weakness, longstanding, progressively getting worse. 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 PAST MEDICAL HISTORY: Hypertension, anxiety, neck problems, upper back problems, sciatica, obesity and dental crowns. POSTOPERATIVE COURSE: The patient underwent a right reverse total shoulder arthroplasty on 03/28/2016. She was followed closely with pain control, limited physical therapy and medical consultation. She does have a history of chronic kidney disease. She did have some elevation in her BUN and creatinine postoperatively. By the time she was discharged, this was back to baseline; otherwise, an uneventful postoperative course. She was discharged home on postoperative day #3. PHYSICAL EXAMINATION: On discharge, right shoulder incision was clean, dry and intact. [place] were intact. Skin edges were approximated well. There was no redness or drainage. Neurologically and neurovascularly she is intact in her right upper extremity. DIAGNOSES: Status post right reverse total shoulder arthroplasty with a history of hypertension, anxiety, neck problems, back problems, sciatica, obesity and dental crowns. PLAN: The patient was discharged home with home exercises only. She will continue her preadmission medications and pain medications as needed. She will follow up with Dr. Moody as scheduled in the office.
[2016-10-02] MEDS ORDERED: MISCTAB78 PO (13:32)
[2016-10-02] MEDS ORDERED: EYED OPB (13:34)
[2016-10-02] MEDS ORDERED: POLYSOL OPB (13:34)
== END 2016-03-31 13:45 | disposition home or self-care (01) | DRG 483 ==
LOC: ENRESERVDT → ENRESERVTM → C.ACU 09:34 → C.3E 12:25
PROVIDERS: ADMIT Orthopaedic Surgery Sports Medicine; ATTEND Orthopaedic Surgery Sports Medicine
PROC: 0RRJ0JZ Replacement of Right Shoulder Joint with Synthetic Substitute, Open Approach (ICD-10-PCS; principal; 2016-03-28 11:45)
DX: M19.011 Primary osteoarthritis, right shoulder (principal); M75.101 Unspecified rotator cuff tear or rupture of right shoulder, not specified as traumatic; I12.9 Hypertensive chronic kidney disease with stage 1 through stage 4 chronic kidney disease, or unspecified chronic kidney disease; N18.3 Chronic kidney disease, stage 3 (moderate); E11.22 Type 2 diabetes mellitus with diabetic chronic kidney disease; M10.9 Gout, unspecified; M54.9 Dorsalgia, unspecified; G89.29 Other chronic pain; F41.1 Generalized anxiety disorder; E66.9 Obesity, unspecified; Z98.84 Bariatric surgery status; M54.30 Sciatica, unspecified side; Z68.32 Body mass index [BMI] 32.0-32.9, adult

== ENCOUNTER 2016-11-07 07:03 | Inpatient (IN) | payer OTHER ==
[2016-10-02 13:36] VITALS: BMI 31.0
--- NOTE | 2016-10-02 14:14 | PAT Medication Instructions ---
Service Date Oct 02, 2016. Current Home Medication List Allopurinol (Zyloprim), 200 MG PO QAM Alprazolam (Xanax), 0.5 MG PO QID PRN for Anxiety Atenolol (Tenormin), 25 MG PO QAM Biotin (Biotin 5000), 1 TAB PO QAM Cholecalciferol (Vitamin D), 1 TAB PO QAM Cyclobenzaprine Hcl (Flexeril), 10 MG PO TID PRN for Muscle Spasms Eye Drops (Eye Drops), 1-2 DROPS OPB QID PRN for RN Lisinopril/Hctz (Zestoretic 10MG/12.5MG *), 1 TAB PO QAM Misc Natural Products (Osteo Bi-Flex Advanced Do), 2 TAB PO QPM Multivitamin (Multivitamin), 1 TAB PO QPM Oxybutynin Chloride (Ditropan), 10 MG PO QAM Polyvinyl Alcohol-Povidone (Op (Refresh), 1-2 DROP OPB Vitamin B Complex (Vitamin B Complex), 1 TAB PO QPM [Vitamin B12 Inj], 1 DOSE INJ MONTHLY Medication Instructions For Your Scheduled Surgery [Vitamin B12 Inj], 1 DOSE INJ MONTHLY (okay to continue as directed) - Hold the following medications the morning of surgery: Oxybutynin Chloride (Ditropan), 10 MG PO QAM Lisinopril/Hctz (Zestoretic 10MG/12.5MG *), 1 TAB PO QAM Cyclobenzaprine Hcl (Flexeril), 10 MG PO TID PRN for Muscle Spasms Cholecalciferol (Vitamin D), 1 TAB PO QAM Biotin (Biotin 5000), 1 TAB PO QAM - Take the following medications the morning of surgery with a sip of water: Polyvinyl Alcohol-Povidone (Op (Refresh), 1-2 DROP OPB Eye Drops (Eye Drops), 1-2 DROPS OPB QID PRN for RN (if needed) Atenolol (Tenormin), 25 MG PO QAM Allopurinol (Zyloprim), 200 MG PO QAM Alprazolam (Xanax), 0.5 MG PO QID PRN for Anxiety (if needed) - Take the following medications as scheduled the night before surgery: Vitamin B Complex (Vitamin B Complex), 1 TAB PO QPM Multivitamin (Multivitamin), 1 TAB PO QPM Misc Natural Products (Osteo Bi-Flex Advanced Do), 2 TAB PO QPM Eye Drops (Eye Drops), 1-2 DROPS OPB QID PRN for RN (if needed) Cyclobenzaprine Hcl (Flexeril), 10 MG PO TID PRN for Muscle Spasms (if needed) Alprazolam (Xanax), 0.5 MG PO QID PRN for Anxiety (if needed) If you have any questions please call us at [phone] or [phone] or [phone]
[2016-10-02 15:02] LABS: BASO % 0.4 %; BASO ABS # 0.03 K/uL (0-0.2); COMPLETE YES; EOS % 0.5 %; HEMATOCRIT 40.3 % (37-47); IG% 0.1 %; LYMPH % 20.9 %; LYMPH ABS # 1.71 K/uL (1.2-3.4); MEAN CELL VOLUME 90.4 fL (80-100); MEAN CORPUSCULAR HEMOGLOBIN 30.5 pg (25-34); MEAN CORPUSCULAR HGB CONC 33.7 g/dl (32-36); MEAN PLATELET VOLUME 11.6 fL (7.4-10.4); NEUT % 70.1 %; PLATELET COUNT 234 K/uL (130-400); RED BLOOD COUNT 4.46 M/uL (4.2-5.4)
[2016-10-02 15:09] LABS: BUN/CREATININE RATIO 14.5 (10-20); CREATININE 1.2 mg/dl (0.60-1.20); POTASSIUM 3.7 mmol/L (3.5-5.1)
[2016-10-02 15:16] LABS: PARTIAL THROMBOPLASTIN RATIO 1.1; PROTHROMBIN TIME (PATIENT) 10.7 SECONDS (9.0-12.0)
[2016-10-02 15:19] LABS: URINE APPEARANCE CLEAR (CLEAR); URINE BILIRUBIN NEG (NEG); URINE COLOR YELLOW; URINE NITRITE NEG (NEG); URINE PH 5.5 (4.5-7.5); URINE SPECIFIC GRAVITY 1.014 (1.000-1.030); UROBILINOGEN NEG (NEG); ZZUR CULT IF INDIC CLEAN CATCH NO
[2016-10-02 15:30] LABS: MANUAL MICROSCOPIC REQUIRED? NO; REVIEW REQ? NO
[2016-10-03 06:30] LABS: ESTIMATED AVERAGE GLUCOSE 134 mg/dl; HA1C FLAG Normal (Normal)
--- NOTE | 2016-11-06 21:05 | HISTORY & PHYSICAL EXAMINATION ---
DATE OF ADMISSION: 11/07/2016 CHIEF COMPLAINT: Chronic right knee pain. HISTORY OF PRESENT ILLNESS: This is a 76-year-old female patient of Dr. Hdz, complaining of chronic right knee pain, longstanding, now progressively getting worse. The patient has failed conservative treatment including intraarticular injections, narcotic medications and physical therapy. The patient has increased pain with weightbearing activities and her pain does interfere with her activities of daily living. She has been diagnosed with end-stage osteoarthritis per clinical and radiographic exams. PAST MEDICAL HISTORY: Hypertension, anxiety, osteoarthritis, neck problems, sciatica, obesity. SOCIAL HISTORY: She was a lifelong smoker, quit in the , otherwise a nondrinker. PAST SURGICAL HISTORY: Total shoulder replacement, gallbladder, hysterectomy, appendectomy and fatty tumor removals. FAMILY HISTORY: Noncontributory. REVIEW OF SYSTEMS: The patient complains of chronic right knee pain, failed conservative treatment. Otherwise denies any shortness of breath, chest pain, nausea, vomiting or any other joint complaints. MEDICATIONS: 1. Allopurinol 100 mg 2 tablets daily. 2. Lisinopril 10/12.5 daily. 3. Alprazolam 0.5 mg daily as needed. 4. Vitamin B12 1000 mcg q. 4 weeks. 5. Vitamin B12 1000 mcg q. 90 days. 6. Vicodin as needed. 7. Oxybutynin or Ditropan 10 mg daily. 8. Atenolol 25 mg daily. 9. Flexeril 10 mg p.r.n. 10. Multivitamin daily. 11. Biotin 5000 mcg daily. 12. Glucosamine and chondroitin as needed. 13. Vitamin D3 daily. ALLERGIES: GENTAMICIN, ERYTHROMYCIN, ULTRAM, PERCOCET AND DARVOCET. PHYSICAL EXAMINATION: GENERAL: Well-developed, well-nourished 76-year-old female in no acute distress. She is alert and oriented x3 and pleasant. HEENT: Normocephalic, atraumatic. Extraocular motions are intact. Pupils are equal and reactive to light. HEART: Regular rate and rhythm, no murmurs appreciated. LUNGS: Clear. ABDOMEN: Soft and nontender, bowel sounds are present. EXTREMITIES: Right knee reveals a valgus deformity 0-125 degrees. She has an effusion with morbid obesity. She has 5/5 strength. NEUROLOGIC: Neurovascularly, she is intact in her right lower extremity. DIAGNOSES: Right knee end-stage osteoarthritis, hypertension, anxiety, osteoarthritis, neck problems, sciatica, obesity. PLAN: The patient was advised of her diagnoses. Indications, risks, benefits, and postop course have all been reviewed. The patient wishes to proceed with a right total knee arthroplasty. Necessary consent forms, preoperative testing and clearances will be obtained.
[2016-11-07] VITALS (9 sets, daily range): BP systolic 97–126; BP diastolic 61–81; PULSE 52–80; TEMP 36.2–36.7; O2SAT 93–97; Ht 160 cm; Wt 80.1 kg
[~2016-11-07] VITALS: Ht 160 cm; Wt 80.1 kg
[~2016-11-07 07:03] MED LIST changes: +BUPIVACAINE 0.25% 30 ML VIAL ONE; +BUPIVACAINE 0.5 % 5 MG/1 ML PF 10ML VIAL ONE; -CEFAZOLIN 1000MG/55 ML D5W 55 ML IV SCH; +CEFAZOLIN 2000 MG/60 ML D5W 60 ML IV SCH; +EYED OPB; +EpINEphrine INJ 1MG/ML AMP 1 MG/ML AMP ONE; -GLCSC750600 PO; -HYDR-3419 PO; +LACTATED RINGER'S 1000ML 1,000 ML IV SCH; +LACTATED RINGER'S 1000ML 500 ML IV SCH; +MISCTAB78 PO; -PATIENT'S ALLERGY INFO NEEDS ENTERED SCH; +POLYSOL OPB; -ROPIVACAINE 0.5% 5 MG/ML 30 ML VIAL ONE; +ROPIVACAINE 5MG/ML 30 ML 150 MG, BUPIVACAINE/EPINEPHR 0.5% MPF 30 ML, KETOROLAC TROMETH... INFIL SCH
[2016-11-07] MEDS ORDERED: ONDANSETRON INJ 2 MG/ML 2 ML VIAL IV PRN ×2 (08:15→11:30)
[2016-11-07] MEDS ORDERED: FENTANYL CITRATE INJ 50 MCG/1 ML 2 ML VIAL IV PRN (08:15)
[2016-11-07] MEDS ORDERED: ATROPINE SULFATE 0.1 MG/ML 5ML SYR IV PRN (08:15)
[2016-11-07] MEDS: CeleBREX 200 MG CAP PO SCH ×2 (08:15→08:20)
[2016-11-07] MEDS ORDERED: PROMETHAZINE HCL INJ 6.25 MG in SODIUM CHLORIDE 0.9% 50ML 50 ML IV PRN (08:15)
[2016-11-07] MEDS ORDERED: EpHEDrine SULFATE INJ 50 MG/ML AMP IV PRN (08:15)
[2016-11-07] MEDS: TRANEXAMIC ACID INJ 1,000 MG in SODIUM CHLORIDE 0.9% 100ML 100 ML IV SCH ×2 (08:16→15:13)
[2016-11-07] MEDS ORDERED: POVIDONE-IODINE OP SOLN 30 ML BTL ONE (09:31)
[2016-11-07] MEDS ORDERED: BACITRACIN 50000 UNIT VIAL ONE (09:31)
[2016-11-07] MEDS ORDERED: ORTHO JOINT ANESTHETIC ONE (09:31)
[2016-11-07] MEDS ORDERED: LIDOCAINE HCL 2% 2 ML VIAL (20MG/ML) ONE (10:54)
[2016-11-07] MEDS ORDERED: PROPOFOL IV EMULSION 10 MG/ML 20 ML VIAL IV ONE (10:54)
--- NOTE | 2016-11-07 11:22 | [facility] Operative Report ---
Operative Report Operative Date Nov 07, 2016. Pre-Operative Diagnosis Right knee end-stage osteoarthritis Post-Operative Diagnosis same Procedure(s) Performed Right total knee arthroplasty Surgeon Heidy [employer] In[employer] Specialist Surgeon(s) Kenan Bravo PA-C Estimated Blood Loss 5ml Findings End-stage/arthritis lateral compartment [id number] with valgus knee Specimens A: Right knee bone and tissue Drains 2 Hemovac Anesthesia spinal sedation Complication(s) None Disposition Recovery Room / PACU Indications end stage osteoarthritis failed conservative management Description of Procedure The patient was taken to the operating room and anesthetized under spinal and sedation. Patient was placed supine on the the operating table. A pneumatic tourniquet was placed about the right upper thigh. The knee exam demonstrated a valgus knee with ligaments laxity and hyperextension at least 10 to 15 with instability due to joint space loss laterally.. An anterior longitudinal incision was made across the knee. Skin flaps were elevated. An incision was made into the medial retinaculum and extended up into the mid third of the quadriceps tendon and extended down to the tibial tubercle. Intra-articular findings demonstrated [id number] lateral compartment valgus knee some bone loss lateral compartment. The knee was exposed by excising cruciate ligaments and menisci. The infrapatellar fat pad was resected. The fat pad over the anterior femur at the upper aspect of the articular surface was resected for placement of the component in that area. A subperiosteal peel lateral release was performed around the patella The Barron and nephew journey 2.0 total knee arthroplasty system was utilized for the procedure. The custom femoral cutting guide was pinned in position. The distal femoral cut was made. The size 5, 5 in 1 cutting block was placed. The anterior posterior and chamfer cuts were made. The knee was extended and a free hand cut technique was performed to the patella. The patella with was measured and the width was reproduced using a 29 mm patella component. 3 drill holes are made for the patella component pegs. The tibia was then subluxed. The custom tibial cutting block was pinned in position and the proximal tibial cut was made with the oscillating saw. The size 4 tibial trial was externally rotated in line with the tibial tubercle and pinned in position. The punch for the stem was used and the collet was placed. Tibial trials were used for the insert. The size 12 trial gave balanced ligaments through full range of motion. Patella tracking was assessed with range of motion. The patella tracked centrally. The trials were removed. The Orthomix anesthetic cocktail was injected per protocol. The cut bone surfaces and soft tissue were copiously irrigated with antibiotic solution with bacitracin. The final components were cemented with Simplex cement. The final components were Barron and nephew journey 2.0 Oxinium right femoral posterior stabilized component, 4 primary tibial baseplate, 12 mm high flex polyethylene posterior stabilized insert and 29 mm dome patella. While the cement cured the Betadine soak was used per protocol. When the cement cured the knee was copiously irrigated with pulsatile lavage antibiotic solution with bacitracin. 2 drains were brought out laterally connected to Hemovac. The quadriceps tendon and medial retinaculum were closed with interrupted [id number] #1 Vicryl sutures. The knee was taken through full range of motion and repair was secure. The subcutaneous tissues were closed with 2-0 Vicryl sutures. The skin was closed with lars. A sterile dressing was applied. The tourniquet was let down and the patient had good capillary refill to the extremity. The patient tolerated the procedure well. My physician commercial lines assistant Kenan FOSTER assisted in the procedure including prepping draping leg positioning soft tissue retraction instrument management and assisted in the closure ,dressings application and will participate in postoperative care the patient. I attest to the content of the Intraoperative Record and any orders documented therein. Any exceptions are noted below.
[2016-11-07] MEDS ORDERED: MAGNESIUM HYDROXIDE SUSP 30 ML UDC PO PRN (11:30)
[2016-11-07] MEDS ORDERED: DiphenhydrAMINE HCL 50 MG/ML VIAL IV PRN (11:30)
[2016-11-07] MEDS ORDERED: MoRPHine SULFATE 2 MG/ML CARP IV PRN (11:30)
[2016-11-07] MEDS ORDERED: ALUMINUM/MAGNESIUM/SIMETH (MAALOX MAX) 30 ML UDC PO PRN (11:30)
[2016-11-07] MEDS ORDERED: ZOLPIDEM TARTRATE 5 MG TAB PO PRN (11:30)
[2016-11-07] MEDS ORDERED: CYCLOBENZAPRINE HCL 10 MG TAB PO PRN (11:30)
--- NOTE | 2016-11-07 12:07 | DIAGNOSTIC IMAGING REPORT ---
RIGHT KNEE 2 VIEWS History: Right total knee arthroplasty. Degenerative arthritis. Postop. FINDINGS: The patient is status post a right total knee arthroplasty. The hardware is intact. No fracture or dislocation. Skin lars and surgical drains are in place. IMPRESSION: Right total knee arthroplasty. No evidence for hardware complication. Electronically signed by: Carlitos Hdez M.D. 11/07/2016 12:06 PM Dictated Date/Time: 11/07/2016 12:06 PM
--- NOTE | 2016-11-07 12:26 | Anesthesiology Progress Note ---
Anesthesia Post Op Note Date & Time Nov 07, 2016 at 12:26 Vital Signs Pain Intensity: 0 Vital Signs Past 12 Hours Date Time Temp Pulse Resp B/P (MAP) Pulse Ox O2 Delivery O2 Flow Rate FiO2 11/07/16 12:11 98/61 11/07/16 12:08 36.3 11/07/16 12:08 80 15 11/07/16 12:08 85 15 95 11/07/16 12:07 95 19 97 11/07/16 12:07 84 19 11/07/16 12:06 103/61 11/07/16 12:02 80 16 97 11/07/16 12:02 82 16 11/07/16 12:01 94/53 11/07/16 11:57 84 13 11/07/16 11:57 87 13 97 11/07/16 11:56 107/65 11/07/16 11:52 90 16 98 11/07/16 11:52 90 16 11/07/16 11:51 75 15 106/60 99 11/07/16 11:51 76 15 11/07/16 11:46 82 15 11/07/16 11:46 81 15 115/67 99 11/07/16 11:43 95/57 11/07/16 11:41 84 97 11/07/16 11:41 84 11/07/16 11:41 36.8 80 16 95/57 100 Nasal Cannula 3 11/07/16 08:01 95 Room Air 11/07/16 07:50 36.7 70 20 112/68 (83) 95 Room Air Notes Mental Status: alert / awake / arousable, participated in evaluation Pt Amnestic to Procedure: Yes Nausea / Vomiting: adequately controlled Pain: adequately controlled Airway Patency, RR, SpO2: stable & adequate BP & HR: stable & adequate Hydration State: stable & adequate Neuraxial Anesthesia: was administered, sensory block is resolving Anesthetic Complications: no major complications apparent
[2016-11-07] MEDS ORDERED: D5W AND 1/2NSS + 20MEQ KCL 1,000 ML IV SCH (13:45)
[2016-11-07] MEDS ORDERED: BIOT1TAB5 (15:13)
[2016-11-07] MEDS ORDERED: DEXTROSE 50% 50 ML SYR IV PRN (15:30)
[2016-11-07] MEDS ORDERED: GLUCAGON FOR INJ 1 MG VIAL SQ PRN (15:30)
[2016-11-07] MEDS ORDERED: GLUCOSE 40% GEL 15 GM TUBE PO PRN (15:30)
[2016-11-07] MEDS ORDERED: GLUCOSE 10 TABS/TUBE PO PRN (15:30)
--- NOTE | 2016-11-07 15:40 | Medical Consult ---
Consultation Date of Consultation: Nov 07, 2016. Attending Physician: Spencer Moody M.D. Reason for Consultation: Post-op medical management History of Present Illness This is a 76yo F with a PMH of HTN, CKD III, DM II and osteoarthritis who is POD #0 s/p R total knee arthroplasty with Dr. Moody. Patient has chronic R knee pain that has failed conservative treatment, such as intraarticular injections, narcotic pain medication and physical therapy. Patient is doing well post-operatively. Denies any lightheadedness, confusion, CP, SOB, abd pain , nausea, vomiting, LE weakness, swelling or pain. Past Medical/Surgical History Medical Problems: (1) CKD (chronic kidney disease), stage III Status: Chronic (2) DM type 2 (diabetes mellitus, type 2) Status: Chronic (3) Esophagitis Status: Chronic (4) DON (generalized anxiety disorder) Status: Chronic (5) Gout Status: Chronic (6) HTN (hypertension) Status: Chronic (7) Osteoarthritis Status: Chronic (8) Postgastric surgery syndrome Status: Chronic Surgical Problems: (1) H/O arthroscopy of knee Status: Chronic (2) H/O umbilical hernia repair Status: Chronic (3) History of hysterectomy Status: Chronic (4) S/P appendectomy Status: Chronic (5) S/P gastric bypass Status: Chronic (6) S/P laparoscopic cholecystectomy Status: Chronic (7) S/P tonsillectomy and adenoidectomy Status: Chronic Family History Cardiac disorder MOTHER BROTHER FATHER Diabetes mellitus MOTHER BROTHER Hypertension MOTHER BROTHER SISTER FATHER Stroke MOTHER Social History Smoking Status: Former Smoker Occupation Status: retired Allergies Coded Allergies: NSAIDs (Verified Allergy, Intermediate, stomach issues, 11/07/16) hx of gastric bypass Erythromycin (Verified Allergy, Unknown, NAUSEA AND VOMITING, 11/07/16) Gentamicin (Verified Allergy, Unknown, UNKNOWN, 11/07/16) Oxycodone (Verified Adverse Reaction, Mild, NAUSEA AND VOMITING, 11/07/16) Propoxyphene (Verified Adverse Reaction, Mild, NAUSEA AND VOMITING, 11/07/16 ) Tramadol (Verified Adverse Reaction, Mild, NAUSEA, 11/07/16) Home Medications Reported Home Medications Medications Dose Route/Sig Max Daily Dose Days Date Category Biotin 1,000 Mcg Tab DAILY 11/07/16 Reported Eye Drops (Miscellaneous) Drp 1-2 Drops OPB QID PRN 10/02/16 Reported Refresh (Polyvinyl Alcohol-Povidone (Op) 1 Ananth Ananth 1-2 Drop OPB 10/02/16 Reported Osteo Bi-Flex Advanced Do (Misc Natural Products) 1 Tab Tab 2 Tab PO QPM 10/02/16 Reported Vitamin B Complex 1 Tab Tab 1 Tab PO QPM 03/12/16 Reported [Vitamin B12 Inj] 1 Dose INJ MONTHLY 03/12/16 Reported Flexeril (Cyclobenzaprine Hcl) 10 Mg Tab 10 Mg PO TID PRN 03/12/16 Reported Zyloprim (Allopurinol) 100 Mg Tab 200 Mg PO QAM 06/23/15 Reported Vitamin D (Cholecalciferol) 2,000 Unit Tab 1 Tab PO QAM 06/23/15 Reported Ditropan (Oxybutynin Chloride) 5 Mg Tab 10 Mg PO QAM 06/23/15 Reported Zestoretic 10MG/12.5MG * (HCTZ/Lisinopril) Tab 1 Tab PO QAM 09/22/10 Reported Multivitamin (Multivitamins) Tab 1 Tab PO QPM 03/07/09 Reported Xanax (Alprazolam) 0.5 Mg Tab 0.5 Mg PO QID PRN 03/07/09 Reported Tenormin (Atenolol) 25 Mg Tab 25 Mg PO QAM 03/07/09 Reported Current Inpatient Medications Current Inpatient Medications Medications (Trade) Dose Ordered Sig/Fito Route Start Time Stop Time Status Last Admin Dose Admin Cefazolin Sodium 60 ml @ 100 mls/hr PREOP IV 11/07/16 06:00 11/07/16 18:00 11/07/16 09:47 100 MLS/HR Acetaminophen (Tylenol Tab) 1,000 mg PREOP PO 11/07/16 06:00 11/07/16 18:00 11/07/16 08:15 1,000 MG Dexamethasone (Decadron Tab) 8 mg PREOP PO 11/07/16 06:00 11/07/16 18:00 11/07/16 08:15 8 MG Famotidine (Pepcid Tab) 20 mg PREOP PO 11/07/16 06:00 11/07/16 18:00 11/07/16 08:15 20 MG Gabapentin (Neurontin Cap) 300 mg PREOP PO 11/07/16 06:00 11/07/16 18:00 11/07/16 08:15 300 MG Metoclopramide HCl (Reglan Tab) 10 mg PREOP PO 11/07/16 06:00 11/07/16 18:00 11/07/16 08:15 10 MG Tranexamic Acid 1000 mg/Sodium Chloride 110 ml @ 660 mls/hr TODAY@06,0630 IV 11/07/16 06:00 11/07/16 18:00 11/07/16 08:16 660 MLS/HR Potassium Chloride/Dextrose/ Sod Cl 1,000 ml @ 100 mls/hr Q10H IV 11/07/16 13:45 11/08/16 11:25 11/07/16 15:13 100 MLS/HR Cefazolin Sodium 2000 mg/Dextrose 60 ml @ 100 mls/hr Q8H IV 11/07/16 18:00 11/08/16 02:35 Acetaminophen/ Hydrocodone Bitart ([place] 5/325 Tab) 1 TABLET FOR PAIN RATING... Q4H PRN PO 11/07/16 11:30 11/21/16 11:29 Morphine Sulfate (MoRPHine SULFATE INJ) 2 mg 4XDQ3H PRN IV 11/07/16 11:30 11/21/16 11:29 Magnesium Hydroxide (Milk Of Magnesia Susp) 30 ml Q6H PRN PO 11/07/16 11:30 12/07/16 11:29 Docusate Sodium (coLACE CAP) 100 mg BID PO 11/07/16 21:00 12/07/16 20:59 Diphenhydramine HCl (Benadryl Cap) 25 mg Q8H PRN PO 11/07/16 11:30 12/07/16 11:29 Diphenhydramine HCl (Benadryl Inj) 25 mg Q8H PRN IV 11/07/16 11:30 12/07/16 11:29 Al Hydrox/Mg Hydrox/Simethicone (Maalox Max Susp) 15 ml Q4H PRN PO 11/07/16 11:30 12/07/16 11:29 Zolpidem Tartrate (Ambien Tab) 5 mg HSZ PRN PO 11/07/16 11:30 12/07/16 11:29 Ondansetron HCl (Zofran Inj) 4 mg Q6H PRN IV 11/07/16 11:30 12/07/16 11:29 Ferrous Gluconate (Ferrous Gluconate Tab) 324 mg TIDM PO 11/07/16 17:45 12/07/16 17:44 Pantoprazole Sodium (Protonix Tab) 40 mg QAM PO 11/08/16 09:00 12/08/16 08:59 Aspirin (Ecotrin Tab) 81 mg BID PO 11/07/16 21:00 12/07/16 20:59 Allopurinol (Zyloprim Tab) 200 mg QAM PO 11/08/16 09:00 12/08/16 08:59 Alprazolam (Xanax Tab) 0.5 mg QID PRN PO 11/07/16 11:30 12/07/16 11:29 Atenolol (Tenormin Tab) 25 mg QAM PO 11/08/16 09:00 12/08/16 08:59 Cyclobenzaprine HCl (Flexeril Tab) 10 mg TID PRN PO 11/07/16 11:30 12/07/16 11:29 HCTZ/Lisinopril (Prinzide 10-12.5MG Tab) 1 tab QAM PO 11/08/16 09:00 12/08/16 08:59 Future Hold Multivitamins (Multivitamin Tab) 1 tab QPM PO 11/07/16 21:00 12/07/16 20:59 Oxybutynin Chloride (Ditropan Tab) 10 mg QAM PO 11/08/16 09:00 12/08/16 08:59 Vitamin B Complex (Vitamin B Complex) 1 tab QPM PO 11/07/16 21:00 12/07/16 20:59 Cholecalciferol (Vitamin D Tab) 2,000 inter.unit DAILY PO 11/08/16 09:00 12/08/16 08:59 Cyanocobalamin (Vitamin B-12 Inj) 1,000 mcg 11/09/16 IM 11/09/16 09:00 11/09/16 09:01 Review of Systems Ten systems reviewed and negative except as noted in the HPI. Physical Exam Date Time Temp Pulse Resp B/P (MAP) Pulse Ox O2 Delivery O2 Flow Rate FiO2 9/6/17 15:09 36.4 53 16 106/61 (76) 97 Nasal Cannula 2.0 11/07/16 14:22 78 18 126/81 (96) 11/07/16 13:42 80 97/61 (73) 11/07/16 13:05 Nasal Cannula 2.0 11/07/16 13:05 Nasal Cannula 11/07/16 13:00 36.2 72 16 107/71 (83) 94 Nasal Cannula 2.0 11/07/16 12:51 106/57 11/07/16 12:50 93 18 96 11/07/16 12:50 91 18 11/07/16 12:47 104/69 11/07/16 12:45 77 15 11/07/16 12:45 75 15 97 11/07/16 12:44 86 16 98 11/07/16 12:44 88 16 11/07/16 12:41 109/63 11/07/16 12:39 62 14 11/07/16 12:39 64 14 96 11/07/16 12:36 107/61 11/07/16 12:34 58 12 11/07/16 12:34 57 12 99 11/07/16 12:31 96/60 11/07/16 12:29 58 14 11/07/16 12:29 60 14 93 11/07/16 12:28 62 12 94 11/07/16 12:28 64 12 11/07/16 12:27 57 17 11/07/16 12:27 54 17 98 11/07/16 12:26 101/56 11/07/16 12:22 75 13 100 11/07/16 12:22 77 13 11/07/16 12:21 100/58 11/07/16 12:17 80 12 11/07/16 12:17 76 12 97 11/07/16 12:16 108/66 11/07/16 12:12 75 17 11/07/16 12:12 76 17 95 11/07/16 12:11 98/61 11/07/16 12:08 36.3 11/07/16 12:08 80 15 11/07/16 12:08 85 15 95 11/07/16 12:07 95 19 97 11/07/16 12:07 84 19 11/07/16 12:06 103/61 11/07/16 12:02 80 16 97 11/07/16 12:02 82 16 11/07/16 12:01 94/53 11/07/16 11:57 84 13 11/07/16 11:57 87 13 97 11/07/16 11:56 107/65 11/07/16 11:52 90 16 98 11/07/16 11:52 90 16 11/07/16 11:51 75 15 106/60 99 11/07/16 11:51 76 15 11/07/16 11:46 82 15 11/07/16 11:46 81 15 115/67 99 11/07/16 11:43 95/57 11/07/16 11:41 84 97 11/07/16 11:41 84 11/07/16 11:41 36.8 80 16 95/57 100 Nasal Cannula 3 11/07/16 08:01 95 Room Air 11/07/16 07:50 36.7 70 20 112/68 (83) 95 Room Air General Appearance: WD/WN, no apparent distress Head: normocephalic, atraumatic Eyes: normal inspection, PERRL, sclerae normal ENT: hearing grossly normal Neck: supple, no adenopathy, trachea midline Respiratory/Chest: chest non-tender, lungs clear, normal breath sounds, no respiratory distress, no accessory muscle use Cardiovascular: regular rate, rhythm, no murmur, normal peripheral pulses Abdomen/GI: normal bowel sounds, non tender, soft, no organomegaly Back: normal inspection Extremities/Musculoskelatal: normal inspection (R knee with dressing in place, clean/dry/intact. Wound vac attached with sanginous drainage. ), no calf tenderness, normal capillary refill, no pedal edema Neurologic/Psych: sterile technician II-XII nml as tested, no motor/sensory deficits, alert, normal mood/affect, oriented x 3 Skin: normal color, warm/dry, no rash Assessment & Plan This is a 76yo F with a PMH of HTN, CKD III, DM II and osteoarthritis who is POD #0 s/p R total knee arthroplasty with Dr. Moody. S/p R TKA: -Pt is doing well post-operatively -Per ortho for pain control, wound care, anticoagulation and activities -Monitor H&H, continue incentive spirometry, PT/OT when appropriate HTN: -BP has been on the low side of normal today -Will hold lisinopril/HCTZ -Continue atenolol with hold parameters in place -Monitor DM II: -Per patient, has been managing with diet only -Last hgb a1c of 6.3 -Started on diabetic diet -BG checks CKD III: -Baseline Cr of 1.2, GFR of 43.6 -Avoid nephrotoxic agents -BMP in AM Gout: -Stable -Continue home meds Vit B12, D deficiency: -Stable -2/2 gastric bypass surgery in 2004 -Continue home meds -Due for monthly B12 injection tomorrow Anxiety: -Stable -Continue home meds DVT Ppx: SCDs, per ortho Code status: FULL PCP: ELIZABETH Huang Dispo: Per primary Thank you for this consultation. We will follow the patient with you during their hospital stay. You can reach a member of the [facility] Hospitalist Team 24/09 via pager @ . Attending addendum: Agree with the above H&P consultation; please refer to above for more detail. Patient is a 76 yo female who presents to the hospital for scheduled right knee replacement surgery. She reports feeling well right now, states her spinal is wearing off but she is not experiencing any pain. Tolerating PO. Cardiac: RR, S1 and S2 auscultated Respiratory: CTA B/L, no wheezes, rales, rhonchi GI: soft, NT, ND, +BS POSTOPERATIVE: S/P R TKA -POD #0 -pain control, DVT prophylaxis, activity as per primary team -monitor for post op anemia -encourage IS -continue calcium + vitamin D -check D levels -needs outpatient dexa and probable need for bisphosphonates BORDERLINE/DIET CONTROLLED DIABETES: per outpatient records but patient denies -check a more recent HbA1c -SSI if needed for BSG>160 HYPOTENSION: Hx of HTN -will hold BP meds for now; switch fluids from D5W to NSS -likely related to postop state with pain medications/anesthesia and blood loss -monitor Per discussion with Ortho Attending, the patient's bone appeared very soft and suspicious for osteoporosis; the patient should undergo outpatient evaluation for osteoporosis and likely will need bisphosphonate therapy once she is out of the perioperative period; if this information can be provided to the patient upon discharge and the PCP also given this information it would be greatly appreciated.
[2016-11-07] MEDS ORDERED: INSULIN ASPART 100 UNITS/ML 3 ML PEN SC SCH (17:15)
[2016-11-07] MEDS ORDERED: FERROUS GLUCONATE 324 MG TAB PO SCH (17:45)
[2016-11-07] MEDS: CEFAZOLIN IV 2,000 MG in DEXTROSE 5% 50ML 50 ML IV SCH (18:07)
[2016-11-07] MEDS ORDERED: SODIUM CHLORIDE 0.9% 1000ML 1,000 ML IV SCH (19:45)
[2016-11-07] MEDS: MULTIVITAMIN TAB PO SCH (21:14)
[2016-11-07] MEDS: ASPIRIN 81 MG ECTAB PO SCH (21:14)
[2016-11-07] MEDS: DOCUSATE SODIUM 100 MG CAP PO SCH (21:14)
[2016-11-07] MEDS: VITAMIN B COMPLEX TAB PO SCH (21:17)
[2016-11-07] MEDS: HYDROCODONE/ACETAMOPHEN 5/325MG TAB PO PRN (21:29)
[2016-11-08] MEDS: ALPRAZOLAM 0.5 MG TAB PO PRN ×3 (00:39→23:16)
[2016-11-08] MEDS: CEFAZOLIN IV 2,000 MG in DEXTROSE 5% 50ML 50 ML IV SCH (02:04)
[2016-11-08 03:05] VITALS: BP 106/66; PULSE 62; TEMP 36.2; O2SAT 94
[2016-11-08 05:58] LABS: HEMATOCRIT 31.7 % (37-47); MEAN CELL VOLUME 89.3 fL (80-100); MEAN CORPUSCULAR HEMOGLOBIN 30.4 pg (25-34); MEAN CORPUSCULAR HGB CONC 34.1 g/dl (32-36); MEAN PLATELET VOLUME 11.2 fL (7.4-10.4); PLATELET COUNT 190 K/uL (130-400); RED BLOOD COUNT 3.55 M/uL (4.2-5.4); WHITE BLOOD COUNT 15.02 K/uL (4.8-10.8)
[2016-11-08 06:16] LABS: PROTHROMBIN TIME (PATIENT) 10.9 SECONDS (9.0-12.0)
[2016-11-08 06:31] LABS: BUN/CREATININE RATIO 20.2 (10-20); CALCIUM 8.7 mg/dl (8.5-10.1); CREATININE 1.7 mg/dl (0.60-1.20); POTASSIUM 4.3 mmol/L (3.5-5.1)
[2016-11-08 06:59] VITALS: BP 106/69; PULSE 54; TEMP 36.3; O2SAT 93
--- NOTE | 2016-11-08 07:40 | Orthopedic Progress Note ---
Orthopedic Progress Note Date of Service Nov 08, 2016. Subjective Post OP Day: 1 Reports: feeling well Objective N/V intact, dressing C/D/I (Hemovac in place), toes mobile Date Time Temp Pulse Resp B/P (MAP) Pulse Ox O2 Delivery O2 Flow Rate FiO2 11/08/16 06:59 36.3 54 16 106/69 (81) 93 Room Air 11/08/16 03:05 36.2 62 16 106/66 (79) 94 Room Air 11/08/16 00:25 Room Air 11/07/16 22:55 36.3 66 18 105/67 (80) 93 Room Air 11/07/16 19:54 36.5 57 16 106/65 (79) 95 Room Air 11/07/16 15:59 36.2 52 16 111/73 (86) 96 Room Air 11/07/16 15:30 Room Air 11/07/16 15:09 36.4 53 16 106/61 (76) 97 Nasal Cannula 2.0 11/07/16 14:22 78 18 126/81 (96) 11/07/16 13:42 80 97/61 (73) 11/07/16 13:05 Nasal Cannula 2.0 11/07/16 13:05 Nasal Cannula 11/07/16 13:00 36.2 72 16 107/71 (83) 94 Nasal Cannula 2.0 11/07/16 12:51 106/57 11/07/16 12:50 93 18 96 11/07/16 12:50 91 18 11/07/16 12:47 104/69 11/07/16 12:45 77 15 11/07/16 12:45 75 15 97 11/07/16 12:44 86 16 98 11/07/16 12:44 88 16 11/07/16 12:41 109/63 11/07/16 12:39 62 14 11/07/16 12:39 64 14 96 11/07/16 12:36 107/61 11/07/16 12:34 58 12 11/07/16 12:34 57 12 99 11/07/16 12:31 96/60 11/07/16 12:29 58 14 11/07/16 12:29 60 14 93 11/07/16 12:28 62 12 94 11/07/16 12:28 64 12 11/07/16 12:27 57 17 11/07/16 12:27 54 17 98 11/07/16 12:26 101/56 11/07/16 12:22 75 13 100 11/07/16 12:22 77 13 11/07/16 12:21 100/58 11/07/16 12:17 80 12 11/07/16 12:17 76 12 97 11/07/16 12:16 108/66 11/07/16 12:12 75 17 11/07/16 12:12 76 17 95 11/07/16 12:11 98/61 11/07/16 12:08 36.3 11/07/16 12:08 80 15 11/07/16 12:08 85 15 95 11/07/16 12:07 95 19 97 11/07/16 12:07 84 19 11/07/16 12:06 103/61 11/07/16 12:02 80 16 97 11/07/16 12:02 82 16 11/07/16 12:01 94/53 11/07/16 11:57 84 13 11/07/16 11:57 87 13 97 11/07/16 11:56 107/65 11/07/16 11:52 90 16 98 11/07/16 11:52 90 16 11/07/16 11:51 75 15 106/60 99 11/07/16 11:51 76 15 11/07/16 11:46 82 15 11/07/16 11:46 81 15 115/67 99 11/07/16 11:43 95/57 11/07/16 11:41 84 97 11/07/16 11:41 84 11/07/16 11:41 36.8 80 16 95/57 100 Nasal Cannula 3 11/07/16 08:01 95 Room Air 11/07/16 07:50 36.7 70 20 112/68 (83) 95 Room Air Laboratory Results 24 Hours: Test 11/08/16 05:17 Hematocrit 31.7 % Hemoglobin 10.8 g/dL Prothromb Time International Ratio 1.0 Prothrombin Time 10.9 SECONDS Assessment & Plan Assessment: 76 yo female stable POD #1 s/p right TKA Plan: 1. Med management 2. DVT prophylaxis- ASA, SCDs 3. PT/OT 4. D/C planning- pt interested in [facility] in [place]
[2016-11-08] MEDS: CHOLECALCIFEROL 1000 INTER.UNIT TAB PO SCH (08:33)
[2016-11-08] MEDS: PANTOprazole SOD 40 MG TAB PO SCH (08:33)
[2016-11-08] MEDS: OXYBUTYNIN CHLORIDE 5 MG TAB PO SCH (08:33)
[2016-11-08] MEDS: ALLOPURINOL 100 MG TAB PO SCH (08:34)
[2016-11-08] MEDS: ASPIRIN 81 MG ECTAB PO SCH ×2 (08:35→20:50)
[2016-11-08] MEDS: DOCUSATE SODIUM 100 MG CAP PO SCH ×2 (08:35→20:49)
[2016-11-08] MEDS: HYDROCODONE/ACETAMOPHEN 5/325MG TAB PO PRN ×3 (08:42→15:54)
[2016-11-08] MEDS ORDERED: LISINOPRIL/HCTZ 10/12.5MG TAB PO SCH (09:00)
[2016-11-08] MEDS ORDERED: MULTIVITAMIN TAB PO SCH (09:00)
--- NOTE | 2016-11-08 09:17 | Anesthesiology Progress Note ---
Anesthesia Post Op Note Date & Time Nov 08, 2016 at 09:17 Vital Signs Vital Signs Past 12 Hours Date Time Temp Pulse Resp B/P (MAP) Pulse Ox O2 Delivery O2 Flow Rate FiO2 11/08/16 07:35 Room Air 11/08/16 06:59 36.3 54 16 106/69 (81) 93 Room Air 11/08/16 03:05 36.2 62 16 106/66 (79) 94 Room Air 11/08/16 00:25 Room Air 11/07/16 22:55 36.3 66 18 105/67 (80) 93 Room Air Notes Mental Status: alert / awake / arousable, participated in evaluation Pt Amnestic to Procedure: Yes Nausea / Vomiting: adequately controlled Pain: adequately controlled Airway Patency, RR, SpO2: stable & adequate BP & HR: stable & adequate Hydration State: stable & adequate Neuraxial Anesthesia: sensory block resolved Anesthetic Complications: no major complications apparent
[2016-11-08 10:52] VITALS: BP 100/63; PULSE 60; TEMP 36.3; O2SAT 96
[2016-11-08 11:33] VITALS: BP 97/67; PULSE 62; TEMP 36.2; O2SAT 94
[2016-11-08 14:47] VITALS: BP 105/65; PULSE 57; TEMP 36.4; O2SAT 97
[2016-11-08] MEDS ORDERED: MIDAZOLAM HCL 1 MG/ML 2ML VIAL ONE (15:05)
[2016-11-08] MEDS ORDERED: FENTANYL CITRATE INJ 50 MCG/1 ML 2 ML VIAL ONE (15:05)
--- NOTE | 2016-11-08 18:42 | Progress Note ---
Internal Med Progress Note Date of Service: Nov 08, 2016. Provider Documentation: SUBJECTIVE: doing well no complain of SOB or chest discomfort OBJECTIVE: Vital Signs-as noted below Exam: General-no sign of distress Eyes-sclera non icteric ENT-NAD Neck-no JVD Lungs-CTA Heart-regular S1/S2 Abdomen-soft, non tender Extremities-s/p Rt TKA Neuro-no focal deficit Lab data as noted below. ASSESSMENT & PLAN: This is a 76yo F with a PMH of HTN, CKD III, DM II and osteoarthritis s/p R total knee arthroplasty with Dr. Moody. S/p R TKA: POD #1 -Pt is doing well post-operatively -Per ortho for pain control, wound care, anticoagulation and activities -Monitor H&H, continue incentive spirometry, PT/OT when appropriate HTN: -BP stable resume out pt meds Atenolol /HCTZ /Lisinopril DM II: -Per patient, has been managing with diet only -Last hgb a1c of 6.3 -Started on diabetic diet -BG checks CKD III: -Baseline Cr of 1.2, GFR of 43.6 -Avoid nephrotoxic agents Gout: -Stable -Continue home meds Vit B12, D deficiency: -Stable -2/2 gastric bypass surgery in 2004 -Continue home meds - Anxiety: -Stable -Continue home meds Vital Signs: Date Time Temp Pulse Resp B/P (MAP) Pulse Ox O2 Delivery O2 Flow Rate FiO2 11/09/16 15:03 36.5 66 17 132/81 (98) 96 Room Air 11/09/16 11:03 36.5 64 16 94 Room Air 11/09/16 08:11 Room Air 11/09/16 06:36 36.5 64 16 112/68 (83) 94 Room Air 11/08/16 23:49 Room Air 11/08/16 23:14 36.4 55 16 112/72 (85) 95 Room Air 11/08/16 19:30 Room Air Lab Results: Results Past 24 Hours Test 11/08/16 17:10 11/08/16 20:39 11/09/16 06:41 11/09/16 12:03 Range/Units Bedside Glucose 120 109 115 126 70-90 mg/dl
[2016-11-08] MEDS: VITAMIN B COMPLEX TAB PO SCH (20:50)
[2016-11-08] MEDS: MULTIVITAMIN TAB PO SCH (20:50)
[2016-11-08 23:14] VITALS: BP 112/72; PULSE 55; TEMP 36.4; O2SAT 95
[2016-11-09] MEDS: HYDROCODONE/ACETAMOPHEN 5/325MG TAB PO PRN ×3 (05:15→16:42)
[2016-11-09 06:36] VITALS: BP 112/68; PULSE 64; TEMP 36.5; O2SAT 94
[2016-11-09] MEDS: DOCUSATE SODIUM 100 MG CAP PO SCH (07:31)
[2016-11-09] MEDS: PANTOprazole SOD 40 MG TAB PO SCH (07:31)
[2016-11-09] MEDS: ALLOPURINOL 100 MG TAB PO SCH (07:31)
[2016-11-09] MEDS: OXYBUTYNIN CHLORIDE 5 MG TAB PO SCH (07:31)
[2016-11-09] MEDS: ASPIRIN 81 MG ECTAB PO SCH (07:31)
[2016-11-09] MEDS: CHOLECALCIFEROL 1000 INTER.UNIT TAB PO SCH (07:31)
[2016-11-09] MEDS: ALPRAZOLAM 0.5 MG TAB PO PRN (07:41)
--- NOTE | 2016-11-09 07:57 | Progress Note ---
Orthopedic SOAP Note Subjective Date of Service: Nov 09, 2016. Reports: feeling well, pain controlled w PO medications Objective N/V intact, dressing C/D/I, CMS intact Date Time Temp Pulse Resp B/P (MAP) Pulse Ox O2 Delivery O2 Flow Rate FiO2 11/09/16 06:36 36.5 64 16 112/68 (83) 94 Room Air 11/08/16 23:49 Room Air 11/08/16 23:14 36.4 55 16 112/72 (85) 95 Room Air 11/08/16 19:30 Room Air 11/08/16 14:47 36.4 57 16 105/65 (78) 97 Room Air 11/08/16 11:33 36.2 62 14 97/67 (77) 94 Room Air 11/08/16 10:52 36.3 60 18 100/63 (75) 96 Room Air Assessment 76 yo female stable POD #2 s/p right TKA Plan 1. Med management,hydrocodone for pain 2. DVT prophylaxis- ASA, SCDs 3. PT/OT 4. D/C planning- [facility] in [place] when bed available
[2016-11-09] MEDS ORDERED: CYANOCOBALAMIN 1000 MCG/ML VIAL IM SCH (09:00)
[2016-11-09] MEDS ORDERED: ASPEC81 PO (09:48)
[2016-11-09] MEDS ORDERED: HYDR-5688 PO (09:48)
--- NOTE | 2016-11-09 09:53 | Discharge Instructions ---
Discharge Instructions Date of Service Nov 09, 2016. Admission Reason for Admission: Right Knee Degenerative Joint Disease Discharge Discharge Diagnosis / Problem: S/P right TKA Discharge Goals Goal(s): Decrease discomfort, Improve function Activity Recommendations Activity Limitations: per Instructions/Follow-up section . Instructions / Follow-Up Instructions / Follow-Up ACTIVITY RECOMMENDATIONS: SELF CARE INSTRUCTIONS AFTER TOTAL KNEE REPLACEMENT A. You may need to continue a physical therapy program after discharge from the hospital. There are several options available to you. Your doctor will assist you in selecting the best one for you. 1. An out-patient facility 2 to 3 times a week for therapy or home therapy. 2. Continue working on all exercises taught to you in the hospital. Your goals should be to increase bending of your knee to 90 degrees and beyond and to fully straighten your knee. B. You may progress at your own pace from walking with a walker or crutches to a cane; then to no assistive devices. C. Make walking a part of your daily routine. Be up as much as comfortable with rest periods throughout the day. Rest with leg elevation is very important. Use the ice wrap frequently for the first 3-4 weeks. D. There are no restrictions on activities. You may ride in a car, shop, participate in machine coil assembler and all social activities. E. Wear the long elastic stockings (ANTHONY hose) 20 hours a day for 2 weeks after surgery. They can be removed several times a day for laundering and for a bath. F. You may shower, no tub baths until cleared by your doctor. SPECIAL CARE INSTRUCTIONS: VERY IMPORTANT TO READ AND REVIEW A. There are a few signs you need to watch for after you are home. Call [facility] if you notice any of the followin. Increased severe knee pain. Some pain is expected especially when you exercise. 2. Increased swelling in your leg or knee; pain or swelling of the calf muscle in either lower leg. 3. Any fluid drainage from the incision. 4. Shortness of breath or chest pain. B. Please call [facility] at if you have any concerns or questions about your operation or recovery. The doctor or his nurse will return your call promptly. C. You must take antibiotics before dental work, bladder, bowel or other surgery. Your doctor will provide you with a permanent care to carry describing this precaution. IMPORTANT: * REMEMBER TO TAKE ASPIRIN, 81 MG, TWICE DAILY FOR 4 WEEKS UNLESS OTHERWISE DIRECTED. THIS IS YOUR BLOOD THINNER. * CALL IF INCREASED PAIN, REDNESS, DRAINAGE OR FEVER GREATER THAT 101. * WEAR ANTHONY HOSE 20 HOURS PER DAY FOR 2 WEEKS. * YOU MAY HAVE A LARGE BAND-AID LIKE DRESSING (SILVERON). THIS WILL REMAIN ON YOUR INCISION FOR 7 DAYS, THEN CAN BE REMOVED. IF INCISION IS LEAKING THROUGH DRESSING, CALL THE OFFICE . FOLLOW UP VISIT: If appointment is not already scheduled: Please call [facility] to make a follow-up appointment for 2 weeks after your surgery at . Current Hospital Diet Patient's current hospital diet: Discharge Diet Recommended Diet: Regular Diet Pending Studies Studies pending at discharge: no Laboratory Results Hemoglobin A1c Test 10/02/16 14:20 Range/Units Estimated Average Glucose 134 mg/dl Hemoglobin A1c 6.3 H 4.5-5.6 % Medical Emergencies . Who to Call and When: Medical Emergencies: If at any time you feel your situation is an emergency, please call 911 immediately. . Non-Emergent Contact Non-Emergency issues call your: Surgeon Call Non-Emergent contact if: temperature is above 101, your pain is worsening , wound has increased drainage, wound has increased redness . "Provider Documentation" section prepared by Abimael Armas. . VTE Core Measure Inpt VTE Proph given/why not?: Other Anticoagulation (ASA 81mg BID) [place] Drug Monitoring Program Search Results: patient reviewed within database, no issues identified
[2016-11-09 11:03] VITALS: BP 112/68; PULSE 64; TEMP 36.5; O2SAT 94
[2016-11-09 15:03] VITALS: BP 132/81; PULSE 66; TEMP 36.5; O2SAT 96
[2016-11-09] MEDS ORDERED: HYDROCODONE/ACETAMOPHEN 5/325MG TAB PO PRN (16:30)
[2016-11-09] MEDS ORDERED: ASPIRIN 81 MG ECTAB PO SCH (21:00)
[2016-11-10] MEDS ORDERED: LISINOPRIL/HCTZ 10/12.5MG TAB PO SCH (09:00)
--- NOTE | 2016-11-11 10:55 | DISCHARGE SUMMARY ---
DISCHARGE DIAGNOSIS: Degenerative joint disease, right knee. SECONDARY DIAGNOSES: Hypertension, anxiety, osteoarthritis, sciatica, and obesity. CONSULTS: DO Simba. COMPLICATIONS: None. PROCEDURES: Right total knee arthroplasty performed by Dr. Moody on 11/07/2016. BRIEF HISTORY: As dictated in the history and physical. HOSPITAL SUMMARY: The patient was admitted on the above date and had the above-noted surgery performed, which she tolerated well. [facility] service was consulted for postoperative medical management. On her first postoperative day, she was feeling well and had no complaints. Neurovascularly was intact. Dressings clean, dry and intact. Toes were mobile. Vital signs were stable. She was afebrile and hemoglobin was 10.8. She was started on physical therapy protocol and continued on DVT prophylaxis and pain management. By her second postoperative day, she was feeling well and pain was controlled. Neurovascularly intact. Dressings clean, dry and intact. CMS was intact. Vital signs were stable. She was afebrile. She was progressing well with physical therapy and plans were for her to go to [facility] in [place]. She was remaining medically stable and it was felt she could be transferred to [place] for further physical therapy and care. For further review, please see chart. LABORATORY AND X-RAY DATA: As per chart. DISCHARGE INSTRUCTIONS: The patient was discharged to [place] [facility] on 11/09/2016. DIET: Regular. ACTIVITY: Follow TK instruction sheets and special care instructions as noted and follow up with Dr. Moody in 2 weeks. The patient is to call for appointment if one has not been made for you. DISCHARGE MEDICATIONS: Aspirin 81 mg p.o. b.i.d. for 30 days, Holiday 5/325 one-two tabs p.o. q. 4 hours p.r.n. and resume home meds. MTDD
== END 2016-11-09 17:30 | DRG 470 ==
LOC: C.ACU 07:03 → C.3E 07:30 → CANRESERV 12:19 → ENRESERV 12:19
PROVIDERS: ADMIT Orthopaedic Surgery Sports Medicine; ATTEND Orthopaedic Surgery Sports Medicine
PROC: 0SRC0J9 Replacement of Right Knee Joint with Synthetic Substitute, Cemented, Open Approach (ICD-10-PCS; principal; 2016-11-07 09:40)
DX: M17.11 Unilateral primary osteoarthritis, right knee (principal); I12.9 Hypertensive chronic kidney disease with stage 1 through stage 4 chronic kidney disease, or unspecified chronic kidney disease; E66.9 Obesity, unspecified; F41.1 Generalized anxiety disorder; N18.3 Chronic kidney disease, stage 3 (moderate); K20.9 Esophagitis, unspecified; M1A.9XX0 Chronic gout, unspecified, without tophus (tophi); K91.1 Postgastric surgery syndromes; E53.8 Deficiency of other specified B group vitamins; E55.9 Vitamin D deficiency, unspecified; E11.21 Type 2 diabetes mellitus with diabetic nephropathy; Z96.619 Presence of unspecified artificial shoulder joint; I95.81 Postprocedural hypotension; Z68.31 Body mass index [BMI] 31.0-31.9, adult